=== PATIENT | female | born 1990 | race Caucasian/White ===

== ENCOUNTER 2024-03-29 10:38 | Outpatient (OUT) | payer OTHER, SELFPAY ==
--- NOTE | 2024-03-29 10:46 | XR_ITS ---
The [address] [address] Patient Name: NARENDRA DECKER MRN: [id number] date: 1990 Sex: F Assigned Patient Location: [facility] Current Patient Location: [facility] Accession/Order Number: [id number] Exam Date: 03/29/2024 10:52 Report Date: 03/29/2024 12:15 At the request of: JANETT OVALLE Procedure: XR shoulder RT min 2V EXAM: Right shoulder HISTORY: . Acute Pain Of Right Shoulder M25.511 . COMPARISON: None. TECHNIQUE: 3 views FINDINGS: No acute bony or joint abnormality of the right shoulder is noted. Glenohumeral joint is unremarkable. Right AC joint appears normal. Surrounding soft tissues are unremarkable. XR/XR shoulder RT min 2V IMPRESSION: Negative right shoulder. Electronically authenticated by: RAMILA ARRIAZA Date: 03/29/2024 12:15
== END 2024-03-29 10:39 | disposition home or self-care (01) ==
LOC: RAD 10:42
PROVIDERS: PCP Internal Medicine; Visit Provider Physician Assistant
DX: M25.511 Pain in right shoulder (principal)
CPT/HCPCS: 73030

== ENCOUNTER 2024-07-12 08:33 | Outpatient (OUT) | payer OTHER, SELFPAY ==
[2024-07-12 10:24] LABS: Basophils Absolute Auto 0.1 10^3/uL (0.0-0.1); Eosinophils Absolute Auto 0.1 10^3/uL (0.0-0.7); Eosinophils Percent Auto 1.1 % (0.9-7.0); Hematocrit 35.6 % (36.0-48.0); Hemoglobin 11.6 g/dL (12.0-16.0); Immature Granulocytes Abs Auto 0.01 10^3/uL (0.00-0.03); Immature Granulocytes Pct Auto 0.2 % (0.0-0.5); Lymphocytes Absolute Auto 1.6 10^3/uL (1.2-3.8); Lymphocytes Percent Auto 25.4 % (20.5-60.0); Mean Corpuscular HGB Conc 32.6 g/dL (29.9-35.2); Mean Corpuscular Hemoglobin 29.7 pg (26.7-34.0); Mean Platelet Volume 10.3 fL (9.5-13.5); Monocytes Absolute Auto 0.4 10^3/uL (0.3-0.8); Monocytes Percent Auto 6.6 % (1.7-12.0); Neutrophils Absolute Auto 4.1 10^3/uL (1.4-6.5); Neutrophils Percent Auto 65.7 % (43.0-75.0); Platelet Count 367 10^3/uL (150-450); Red Blood Count 3.91 10^6/uL (4.20-5.40); Red Cell Distribution Width 12.6 % (11.0-15.0); White Blood Count 6.2 10^3/uL (4.0-11.0)
[2024-07-12 11:31] LABS: Percent Iron Saturation 14.3 %
[2024-07-12 11:35] LABS: Alanine Aminotransferase 19 U/L (14-59); Albumin Globulin Ratio 0.6; Albumin Level 2.9 g/dL (3.4-5.0); Alkaline Phosphatase 142 U/L (46-116); Anion Gap 12.1; Aspartate Amino Transferase 11 U/L (15-37); BUN Creatinine Ratio 11.1; Bilirubin Total 0.5 mg/dL (0.2-1.0); Calcium 8.7 mg/dL (8.5-10.1); Carbon Dioxide 26.1 mmol/L (21.0-32.0); Chloride 106 mmol/L (98-107); Estimated GFR (African America >60 (>=60 mL/min/1.73m^2); Estimated GFR (Non-African Ame >60 (>=60 mL/min/1.73m^2); Globulin 4.5 g/dL; Glucose 79 mg/dL (74-106); Potassium 4.2 mmol/L (3.5-5.1); Sodium 140 mmol/L (136-145); Total Protein 7.4 g/dL (6.4-8.2)
[2024-07-13 08:11] LABS: Transferrin 338 mg/dL (192-364)
== END 2024-07-12 08:34 | disposition home or self-care (01) ==
LOC: LAB 08:38
PROVIDERS: PCP Internal Medicine; Visit Provider Physician Assistant
DX: D50.0 Iron deficiency anemia secondary to blood loss (chronic) (principal); I10 Essential (primary) hypertension; B35.1 Tinea unguium
CPT/HCPCS: 36415; 80053; 83540; 83550; 84466; 85025

== ENCOUNTER 2024-12-12 18:59 | Outpatient (REF) | payer OTHER, SELFPAY ==
--- OUTSIDE RECORDS SUMMARY | 2024-12-12 19:03 | XMS_ITS | CCD ---
Author Organization [facility] Care Team Providers Care Orchestrator Name Role Phone CLAUS Burleson, DR PRAJAPATI Admitting Unavailable DR VICTORINA BRAR Attending Unavailable DR FRANK LINARES Primary Care Unavailable DR VICTORINA BRAR Consulting Unavailable Mick Patiño DO Unavailable Frank Linares MD Primary Care Provider NOLVIA OVALLE Attending Unavailable NOLVIA OVALLE Attending Unavailable NOLVIA OVALLE Attending Unavailable Nolvia Shaffer Unavailable Medications Current Medications Medication Drug Class(es) Dates Sig (Normalized) Sig (Original) amoxicillin 50 mg/ml oral suspension (2 sources) Penicillin-class Antibacterial Start: 08-09-2024 End: 08-16-2024 take 10 mL by mouth in the morning amoxicillin (Amoxil) 250 MG/5ML suspension Indications: Acute non-recurrent maxillary sinusitis Take 10 mL (500 mg) by mouth in the morning and 10 mL (500 mg) before bedtime. Do all this for 7 days. 140 mL 08/09/2024 08/16/2024 Active Ethinyl Estradiol / Levonorgestrel (10 sources) Progestin, Estrogen, Progestin-containin g Intrauterine Device Start: 05-31-2024 levonorgestrel-et hinyl estradiol (Jolessa) 0.15-0.03 MG tablet Indications: Abnormal vaginal bleeding Take 1 tablet by mouth Daily 91 tablet 1 05/31/2024 Active Start: 08-06-2023 End: 05-31-2024 levonorgestrel-ethinyl estra diol (Jolessa) 0.15-0.03 MG tablet Indications: Abnormal vaginal bleeding Take 1 tablet by mouth in the morning. 91 tablet 3 08/06/2023 05/31/2024 Discontinued (Reorder) Start: 08-06-2023 levonorgestrel -ethinyl estradiol (Jolessa) 0.15-0.03 MG tablet Indications: Abnormal vaginal bleeding Take 1 tablet by mouth in the morning. 91 tablet 3 08/06/2023 Active 24 hr metoprolol succinate 50 mg extended release oral tablet (10 sources) beta-Adrenergic Merle Start: 12-11-2024 take 1 tablet by mouth once daily metoprolol succinate XL (Toprol-XL) 50 MG 24 hr tablet Indications: Essential hypertension (CMS/HCC) TAKE 1 TABLET BY MOUTH DAILY, DO NOT CRUSH OR CHEW 100 tablet 3 12/11/2024 Active Start: 05-31-2024 take 1 tablet by franko th once daily metoprolol succinate XL (Toprol-XL) 50 MG 24 hr tablet Indications: Essential hypertension (CMS/HCC) Take 1 tablet (50 mg) by mouth Daily Do not crush or chew. 90 tablet 1 05/31/2024 Active Start: 11-02-2023 End: 05-31-2024 take 1 tablet by mouth once daily metoprolol succinate XL (Toprol-XL) 25 MG 24 hr tablet Indications: Essential (primary) hypertension (CMS/HCC) TAKE 1 TABLET BY MOUTH EVERY DAY FOR 100 DAYS 100 tablet 3 11/02/2023 05/31/2024 Discontinued (Reorder) terbinafine hydrochloride 10 mg/ml topical cream (9 sources) Allylamine Antifungal Start: 05-31-2024 End: 08-29-2024 take 1 tablet by mouth once daily terbinafine (LamISIL) 250 MG tablet Indications: Onychomycosis of toenail Take 1 tablet (250 mg) by mouth Daily 30 tablet 2 05/31/2024 08/29/2024 Active Start: 05-31-2024 End: 08-09-2024 terbinafine (LamISIL AT) 1 % cream Indications: Tinea pedis of both feet Apply topically 2 (two) times a day 42 g 1 05/31/2024 08/09/2024 Discontinued (Other) Completed/Discontinued Medications Medication Drug Class(es) Dates Sig (Normalized) Sig (Original) baclofen 10 mg oral tablet (3 sources) gamma-Aminobutyri c Acid-ergic Agonist Start: 01-26-2024 End: 05-31-2024 take 1 tablet by mouth at bedtime baclofen (Lioresal) 10 MG tablet Indications: Acute pain of right shoulder Take 1 tablet (10 mg) by mouth at bedtime for 7 days 7 tablet 01/26/2024 05/31/2024 Discontinued (Other) Problems Active Problems Problem Classification Problem Date Documented Date Episodic/Chronic Anxiety disorders (16 sources) Anxiety state; Translations: [Generalized anxiety disorder] Onset: 01-26-2024 01-26-2024 Chronic Deficiency and other anemia (2 sources) Iron deficiency anemia due to blood loss; Translations: [Iron deficiency anemia secondary to blood loss (chronic)] 05-31-2024 Chronic Essential hypertension (10 sources) Essential hypertension; Translations: [Essential (primary) hypertension] Onset: 01-26-2024 01-26-2024 Chronic Immunizations and screening for infectious disease (1 source) Encounter for screening for human papillomavirus (HPV); Translations: [ENC SCREENING HUMAN PAPILLOMAVIRUS] Onset: 08-17-2022 Episodic Menstrual disorders (10 sources) Menorrhagia; Translations: [Excessive and frequent menstruation with regular cycle] Onset: 01-26-2024 01-26-2024 Chronic Mycoses (4 sources) Tinea pedis; Translations: [Tinea pedis] 05-31-2024 Episodic Other female genital disorders (8 sources) Abnormal uterine bleeding; Translations: [Other specified abnormal uterine and vaginal bleeding] Onset: 01-26-2024 01-26-2024 Chronic Other female genital disorders (2 sources) Abnormal vaginal bleeding; Translations: [Abnormal uterine and vaginal bleeding, unspecified] 05-31-2024 Chronic Other nervous system disorders (8 sources) Difficulty walking; Translations: [Difficulty in walking, not elsewhere classified] Onset: 01-26-2024 01-26-2024 Chronic Other nervous system disorders (8 sources) Mononeuropathy of lower limb; Translations: [Unspecified mononeuropathy of right lower limb] Onset: 01-26-2024 01-26-2024 Chronic Other nutritional; endocrine; and metabolic disorders (10 sources) Morbid obesity; Translations: [Morbid (severe) obesity due to excess calories] Onset: 01-26-2024 01-26-2024 Chronic Other screening for suspected conditions (not mental disorders or infectious disease) (8 sources) Endometrium thickened; Translations: [Abnormal findings on diagnostic imaging of other specified body structures] Onset: 01-26-2024 01-26-2024 Chronic Other screening for suspected conditions (not mental disorders or infectious disease) (4 sources) Encounter for screening for malignant neoplasm of cervix; Translations: [ENC SCREENING MALIG NEOPLASM CERV] Onset: 08-12-2022 Episodic Other upper respiratory infections (2 sources) Acute maxillary sinusitis; Translations: [Acute maxillary sinusitis, unspecified] 08-09-2024 Episodic Past or Other Problems Problem Classification Problem Date Documented Date Episodic/Chronic Biliary tract disease (8 sources) Cholelithiasis AND cholecystitis with obstruction; Translations: [Calculus of gallbladder with other cholecystitis with obstruction] Onset: 01-26-2024 01-26-2024 Episodic Deficiency and other anemia (8 sources) Iron deficiency anemia; Translations: [Iron deficiency anemia, unspecified] Onset: 01-26-2024 01-26-2024 Episodic Results Test Name Value Interpretation Reference Range Facility ALL CBC WITH AUTO DIFFon BASOPHILS ABSOLUTE AUTO 0.1 [facility] Basophils/100 WBC (Bld) 1 % 0.2 - 2.0 % [facility] Eosinophils/100 WBC (Bld) 1.1 % 0.9 - 7.0 % [facility] Erythrocyte distribution width (RBC) [Ratio] 12.6 % 11.0 - 15.0 % [facility] Hematocrit (Bld) [Volume fraction] 35.6 % Low 36.0 - 48.0 % [facility] Hemoglobin (Bld) [Mass/Vol] 11.6 g/dL Low 12.0 - 16.0 g/dL [facility] IMMATURE GRANULOCYTES ABS AUTO 0.01 [facility] Immature granulocytes/100 WBC (Bld) 0.2 % 0.0 - 0.5 % [facility] Interpretation and review of laboratory results Abnormal [facility] LYMPHOCYTES ABSOLUTE AUTO 1.6 [facility] Lymphocytes/100 WBC (Bld) 25.4 % 20.5 - 60.0 % [facility] MCH (RBC) [Entitic mass] 29.7 pg 26.7 - 34.0 pg [facility] MCHC (RBC) [Mass/Vol] 32.6 g/dL 29.9 - 35.2 g/dL [facility] MCV (RBC) [Entitic vol] 91 fL 81.0 - 99.0 fL [facility] MONOCYTES ABSOLUTE AUTO 0.4 [facility] Monocytes/100 WBC (Bld) 6.6 % 1.7 - 12.0 % [facility] NEUTROPHILS ABSOLUTE AUTO 4.1 [facility] Neutrophils/100 WBC (Bld) 65.7 % 43.0 - 75.0 % [facility] Platelet mean volume (Bld) [Entitic vol] 10.3 fL 9.5 - 13.5 fL [facility] TBH EO # 0.1 [facility] PLT 367 [facility] RBC 3.91 Low [facility] WBC 6.2 [facility] PAP ACOG PANEL 2: 30 to 65on 08-17-2022 . . Normal [facility] Comment on above: Result Comment: Perf ormed at: WB Performed By: #### [id number] #### [facility] [address] [address] [address] Annamaria Cheema Age Gdln ACOG Testing Normal [facility] Comment on above: Performed By: #### [id number] #### [facility] [address] [address] [address] Annamaria Cheema DIAGNOSIS: Comment Normal [facility] Comment on above: Result Comment: NEGA TIVE FOR INTRAEPITHELIAL LESION OR MALIGNANCY. Performed at: WB Performed By: #### [id number] #### [facility] [address] [address] [address] Annamaria Cheema HPV Aptima Negative Normal Negative [facility] Comment on above: Result Comment: This nucleic acid amplification test detects fourteen high-risk HPV types (16,18,31,33,35,39,45,51,52,56,58,59,66,68) without differentiation. Performed at: =G Performed By: #### [id number] #### [facility] [address] [address] [address] Annamaria Cheema HPV Genotype Reflex Comment Normal [facility] Comment on above: Result Comment: Crit eria not met, HPV Genotype not performed. Performed at: WB Performed By: #### [id number] #### [facility] [address] [place] [address] Dr. Annamaria Cheema Methodology: Comment Normal [facility] Comment on above: Result Comment: This liquid based ThinPrep(R) pap test was screened with the use of an image guided system. Performed at: WB Performed By: #### [id number] #### [facility] [address] [place] [address] Dr. Annamaria Cheema Note: Comment Normal [facility] Comment on above: Result Comment: The Pap smear is a screening test designed to aid in the detection of premalignant and malignant conditions of the uterine cervix. It is not a diagnostic procedure and should not be used as the sole means of detecting cervical cancer. Both false-positive and false-negative reports do occur. . Performed at: WB Performed By: #### [id number] #### [facility] [address] [place] [address] Dr. Annamaria Cheema Performed by: Comment Normal [facility] Comment on above: Result Comment: Chaitanya Thurston, Fitting Room Supervisor (ASCP) Performed at: WB Performed By: #### [id number] #### [facility] [address] [place] [address] Dr. Annamaria Cheema Specimen adequacy: Comment Normal [facility] Comment on above: Result Comment: Sati sfactory for evaluation. Endocervical and/or squamous metaplastic cells (endocervical component) are present. Performed at: WB Performed By: #### [id number] #### [facility] [address] [place] [address] Dr. Annamaria Cheema MAGR Postoperative Recordon 11-27-2020 MAGR Postoperative Record MAGR Phase II Record Summary Primary Physician: Mick Patiño DO Finalized Date/Time: 11/27/20 13:22:20 Pt. Name: LORI DECKER/Sex: 1990 FEMALE Med Rec #: [id number] Physician: Mick Patiño DO Financial #: [id number] Pt. Type: D Room/Bed: / Admit/Disch: 11/15/20 09:41:25 - 11/15/20 17:20:00 Institution: Phase II Case Times MAGR Pre-Care Text: Patient is free from s/s of injury. Patient remains free from compromised physical state related to surgery or anesthesia. Patient comfort maintained. Patient/family verbalize understanding of discharge instructions. Entry 1 In PACU II 11/15/20 16:01:00 Discharge from PACU 11/15/20 17:00:00 II Last Modified By: Ruth Awad RN 11/27/20 13:22:08 Post-Care Text: The patient remains free from s/s of injury. Patient's vital signs stable, circulation maintained, return to preop mental and physical status, opsite/dressing intact, minimal or absent nausea and vomiting, tolerates po intake. Patient verbalizes adequate pain control. Patient/family express understanding of discharge instructions. General Comments: care per 2 [facility] Finalized By: Ruth Awad RN Document Signatures Signed By: Ruth Awad RN 11/27/20 13:22 [facility] Coding Summaryon 11-20-2020 Coding Summary HTMLBase 64 BqwoeehpVEv8eSp+PGhlY WQ+QU4AZAOhV32eqWQerV 1JM9rUKS0OPUDAXLWCOQ1 SQD4qyTP1YKpgC6YkxxQw GssdrJYjBU65EKl3GUO0h OokVAxpvP5taOQuQ2x1Kq WgGS44yR92AKocXDPtHoQ 3LjZpbjsgbWFy V9neBlToyAWhYlr+PHRhY mxlIHdpZHRoPScxMDAlJy RrwGmfVZ2lGi1fWJTaWEB vbGxhcHNlOiBj m8rrZOJsVBdlON2zdJnpE 5LosRY6KRYht0o2Sk05jL I+CRYkYBH2sCjkXMtal77 7HpXpn6fkMBL1 bGFeZUqhGCQ8M59dl2N3A NXuCXIoHWN6pWR2wI0pvN xlygeqD2RebCVaIhZ6VIK 3lUTiaH9kbNrg epuzpZ8gGxl+O73MTN5XF BOOYX1ETcs0A8QeIuujmF I+FF70XPRvZW48eYMysKA nd2uxeTm2HtKl YMTpQDC2iTalQPplp9IuV HBzC30frYSqk6M4ATOrgM aiuPZrFrFvwRY7vX9yQXz jzajcy7gzhlro Ewuqu9ucyj13aV64W93sI KddQNIdQGS5EQLmNDBquT jvqw5ywL7aMa1+PMbrb3x ct9umiMf9KzUs FOUmmxUrxHxqDCN9y8RoM f93K6RjyRvkg2YeSqp7jw 14tCRpa8I6vCQ7MZfsVBX djI6mKVvvOtB7 BIVoBaCjkW35bFVkKGwyJ n3feWczbNgsPI9jQPBivg rfVECnpR0yNMPmrNKkcDv aHK6rVZVvifhu n132YhGfHSN1UCIkaDUkY 1PjrL1mVdIbESCnYXPwZ0 KepGPrUZrnI992YEkgSwI 1LODmgcKtV4Ae YHVdiSjeEhM9s5A4Ul9Xu 8JvbzqeNMH8JJdgOIP4Hj V8LmXvArG1J9FxLvu5GXF eiRspHI3uE4Wg GNNpjxrvbmuzbOF5LIXyR SCilT50kJRoTIavVf3ch1 O0p743PEAlEJSsbU91Fp6 udDogMTBwdCBU wC4wcirij2yquxurWbNqV BClGZi9MXx8XUUraHfyTg KvZGL4OwN0VTQ1tVTenO6 woKpyylbmfZ7a Oyc+Z27sbB1cGHL5TMV5u jkdQKZzriDvXK05VC10Y9 RyPjwvdGFibGU+PGRpdiB piHddSZ3bVuNa m6kvs9YqMQsaS7PxBXCkH SjlSzf9STLdYWJ1qVZ7yE 3wJKUjVFdwo2X7pYK9E7G bjaSiia4xm4st IPIxVCyqD89nxUCqr5M6L XPrjVZ4BVTlxMvoQhAatB 93Oyc+GVLgxQwmx6EqAjm tq7wvy1ugtBz6 UsNfLKMuakFdvOwfVEW1i 8EsBt82W36fQWuqOXGsIH CyUVVwOCDsjUgpzf0ywJ8 wIi8+PGNvbCB3 iFL4sY3rKROoYrI1OVnoN 438YpIqoIJvJfiim1ews6 iruBw9KqFkVNWkvcLykAg xHCO7f0IrPs19 N59hAFrmNQRgDULpTNHdK XDosWzvhb0xuJ4vVq7+PC 2an9pqlc92eV22fNJ+PHR kAPY6yTaiVJuh JFIxgL0mSLryWuF4PIEjJ aOnrY86hQEzHVxiVy7ynU eayUueSJ0hRITvvvgen14 6RhEio8vdXONc aBKdBJsxTMS4K11lw2P3S UMoWIBjANY1fIU6hS2ubD lnbjogbGVmdDsgdmVydGl jCHhcKDlbX342 IHRvcDsnPlBhdGllbnQgT tKyLZe9Y2YaDjp9LSEohV xzTX9geLFhTUwxUe2bmZo xvCebCR3lMASk ztger538QeHqc0cnMHCgn EUvZLwqUGX9H72fq6O9UW VvWSSaEBH9pSB3oW1uuQb nbjogbGVmdDsg rwBybMrsVJhlNGakJ518N HRvcDsnPkJpcnRoIERhdG Y5IC77BZ92eVXyc6K8yYU 9L9RkNJZoelbi jnbocHJ3MGIhORDmoF65D f4ahPypOo7mZWPuMCE8HA WbbMPiQ9CdxW1dSmMaTMA hLRDuN6OtvCUz SKppV947HJcwBhF9CPKlk cLuT4HaWQHvcCwnNvI5y5 I7Hz9NV4I9NG74BM35xGD cb6S2eZT2M5Dr YXPajjczkzdryQU5RSNgA QNqyB77Di7vaZkjLm5yWO OlEAU7SEGwjMIbH7HbrO5 yOiAjMDAwMDAw S9DwtVJsNIbuQ089WLyrM bY7OIRjzrSyG3KhEVGycL mkNiT8n7D5Nb2ILAl9DB9 7NH45uCPne7X5 dNJ7G1FaKAQzfnaxbhewj GH5QNAhVGQslI88Vm5aoF vhAy7hLHNvRIB2HLLcsDE oY3OqwP2fGrOc HBAfQCYqF9WwlDGxANmsU 788LSoeCxT5USZpkwXdP1 LkBFZogOoaXuD3i5D5Qp5 ZVVIwEY21SJX8 yAK3PU31UP65Z4YzHdwbt GFibGU+PHRhYmxlIHdpZH RoPScxMDAlJyBzdHlsZT0 mNi3pFGYjDNPl nAkkeEIfYqLrq5ymJCWyA HzlPU0dxPenG7MduIE0CD Jba5e0Tl51B99nM7VlwQA +INKxcDP6fSE4 sZ5sBnTyRuJ7RCesY149E mOppHEhFtrzb2mdt6bwhD o7KtP4NPWiexRuuYmeSAK 5u5QbSe17G06o IHdpZHRoPSIxNSUiIHZhb Dfqic3usK3jOe7+PGNvbC S3eBV5iZ9nQqRkQgB2HNf eC328LdEjgOFw Liudh5utv0kzwWj8MaBxU NEruxLixBygLHA6g0MjXb 09Z1QxvOsrm7UoUoz5zl7 2bXVky3S8fCC7 C0RpZLFciqbdiYOhxLdrO E7fHQYubagwQVDkiH3yQC SdK8l7JdHjRkQ0CDcmU7T rioU4LXVzpXCg XYijKOS9P37hl8I7DBSaP NNjOTQ5nVN5yL5rdYnski ogbGVmdDsgdmVydGljYWw zVJkxC544QGAd fHhfEYEliE9rZPUpiEKxt PohOQ0vKTSmklpiReKSZM kUGUTBQuqeBYuWUE6RXKZ NRUdBTjwvdGQ+ CIPaXHX6aNhjYVmwYWQim J0eDPQnX3d0VjMmWxH4CF lgO1QzUOQxkczbIb89tA0 nOrZyBaW4JGcx M1EotlR4JTPwiHOcPNjuY XE6V08ni7C9UONuNEVeNJ T2bJL3dY6ruZtlmegjwTZ mdDsgdmVydGlj KVslHRlnI905CLPtsBlyY gU2PzK6WqM8CIM0T4KxIq p6KGMthTulTS8trUGjMXl eTm3itPoxbWvy LA3gKXRhwfupMTQhyV2uX JIbvDFnvIkuHN6aUEJwez uum491OpDdJBK6PVUoqKJ qQ2ZspM7gCiQa JMGzGEWtF0BkvRBpOChhM 491CWccQiP8XZLpmfHgV5 BjFGMxfDwmOxG7v3F1Kf3 zMCBZZWFyczwv dGQ+TEHuNHE8eEwfHZdvF ECnyS4aHDOnM6h1DlQrRh F0UPvuR5EfGXHnbcayVp6 9uJ2vLjMjBuK8 IAbzY4WtivR8NMSucZRdO PayBZZ1T37am4O9NKNtVH VkXKW7pZN0wV9ccGjiivg gbGVmdDsgdmVy jRvoSJqpILnkQ997SKJzo DsnPkZFTUFMRTwvdGQ+PH EhFZG5rFulPCioMCYsiM4 vCHMkB7n8DoGf FoW2MDlpS2UbXLJllsspA p35pY4uNeWtPuV6JLxnB4 ZjizA7ZSRycAJuAWtfNVD 5I08eq1L8MAIb THRlUFG8aIQ7kX4uzVfhr jogbGVmdDsgdmVydGljYW sbSDhcC341FFDjtKxfYxY heSBTdXJnZXJ5 UY15ZF26S2PgYrqxaMOyc +PHRhYmxlIHdpZHRoPS rkWKLbJpSebVmrRE4rIv8 yZGVyLWNvbGxh bSGbWiTso7gmDEKsQTwgD Y4ioZbjE6XqjDQ1KVMrm5 g0Ik93O42zD1RttEY+PGN uwFX9gJE6aP4c UmNdBkV2PQotW225YqXya ISgZueva4wam8vzjSl2Ys LmFVDqweNukNzwWOF5a2E cQj62R37eHQvv ZHRoPSIyMCUiIHZhbGlnb h7ilS7pUo9+EMQldRU1nP Q6eG9kKfQdFrR8SSnaL38 9InRvcCIvPjwv L62rZ5QciIS+KAYeJyx7C IYpaMyrZC1cjMRpGKhrWr 0jWMS7XzLzHwAlQKyoQ7R hZGRpbmctcmln mHG3ZIZsDVTkdC08Di0ml BvsJe2yXVAtELZ7UPCdcJ ErA3JzfV2tLmPuMSIiPJD vI2QyfEGkBLxv C949XVxtJtI9FNMiykYnB 5NoKTYdjWsxPzU0t3D1Bu 6UvOehkPDsDC0rXtXhPCy 7Z7AhJmk6FXIo jYxtLH7tcLPdETejUl2wq UfqdZlvAI7kLRJlrxdvc9 30VxQow0zmGXWdkKXdFVh pWXR3D51pu6A8 VRZuAYWjKMC5wZT6kG7eb GlnbjogbGVmdDsgdmVydG urXMjzOFhoR960IYTjfBt oXfMCBdj6G4Uf Dsa5PFJbwJpoRW5egOJiA GvuWe8dvBbvcNplAJ8xOS Basytdb162VgErf0lsEFP wcHQgVGltZXM7 C65ff8D8PAKkEAImQDT8e YF1hC3xiVwmvvnosMIqmI mamiOozYuoMZjzUFfdN88 6ZXBawViqUl6N Edn4A5LsIed9TWQyqWluH K4qpQWtTUygHy7atYxioZ goZW1xGPDbpjjan640QnR ot9pcDJUyfHXt VHplKYZ0L88cg1S4AAThD GJdNIV9qFZ5uP8zyLwvau ogbGVmdDsgdmVydGljYWw fQSjsS022VSLk cDsnPlBheWVyOjwvdGQ+P K79xi86N0ZaOixvNbo7FU YaLMA0hGE2tW5iDKNtREd kx1R7aPO5B1Fn cmR (more content not included)... [facility] Consent Formson 11-18-2020 Consent Forms [id number]#1 [facility] Instructions [id number]#1 [facility] Outside Recordson 11-18-2020 Outside Records [id number]#1 [facility] Tele[facility]pson Telemetry Strips [id number] [facility] 11-15-2020 Anesthesia Note Patient: LORI DECKER Age: 29 years Sex: FEMALE : 1990 Associated Diagnoses: None Author: Mick Owens MD Postoperative Information Post Operative Note: Post Anesthesia Care Unit. Assessment Anesthetic outcome No anesthetic complications noted. Awake Pain controlled VSS Nausea controlled Respiratory non-labored. [Electronically Signed on: 11/16/2020 19:39 EDT] Mick Owens MD [Verified on: 11/16/2020 19:39 EDT] Mick Owens MD [facility] Anesthesia Note Patient: LORI DECKER Age: 29 years Sex: FEMALE : 1990 Associated Diagnoses: None Author: Mick Owens MD Preoperative Information Anesthesia history: Patient history: No history of anesthesia complications. Family history: No family history of anesthesia complications. Review of Systems Respiratory: Negative, No shortness of breath, No cough. Cardiovascular: Negative, No chest pain. Gastrointestinal: No heartburn. All other systems are negative Health Status Allergies: Allergic Reactions (All) No known allergies Current medications: Home Medications (2) Active metoprolol succinate 25 mg oral tablet, extended release 25 mg = 1 tab(s), PO, Daily oxyCODONE 5 mg oral capsule 5 mg = 1 cap(s), PRN, PO, q6hr Problem list (past medical history): All Problems Ankle fracture, left / SNOMED CT 20772419 / Confirmed Hypertension / SNOMED CT 0457520088 / Confirmed obesity Histories Family History: Myocardial infarction Mother Procedure history: Cholecystectomy (64950931) in 2013 at 22 Years. D&C - Dilatation and curettage (1920846749). Social History Electronic Cigarette/Vaping Assessment Electronic Cigarette Use: Never. Alcohol Assessment Use: Never. Tobacco Assessment Never (less than 100 in lifetime) Tobacco Use:. Substance Abuse Assessment Substance use: Never. . Social & Psychosocial Habits Alcohol 11/01/2020 Alcohol Use: Never Substance Abuse 11/01/2020 Substance use: Never Tobacco 11/01/2020 Smoking tobacco use: Never (less than 100 in l Electronic Cigarette/Vaping 11/01/2020 Electronic Cigarette Use: Never . Physical Examination VS/Measurements Vital Signs (last 24 hrs) Last Charted Heart Rate Monitored 96 bpm (NOV 15 10:19) Resp Rate 18 br/min (NOV 15:) SBP 135 mmHg (NOV 15:) DBP 88 mmHg (NOV 15:) Height 170 cm (NOV 15:) Airway: Mallampati classification: II (soft palate, fauces, uvula visible). Mouth: Adequate opening, Teeth ( Within normal limits ). Neck: Full range of motion. Respiratory: Lungs are clear to auscultation. Cardiovascular: Normal rate, Regular rhythm, No murmur. Review / Management Laboratory Results Plan [place] [employer]#( A) physical status classification: Class II. Anesthetic Preoperative Plan Anesthesia: General. , LMA with SNB and Pop Sciatic blk for post op pain control. Anesthetic plan, risks, benefits, and alternatives discussed with the patient and/or family. Risks discussed. Patient verbalized understanding. Consent was signed by the patient. [Electronically Signed on: 11/15/2020 14:39 EDT] Mick Owens MD [Verified on: 11/15/2020 14:39 EDT] Mick Owens MD [facility] Inpatient Patient Summaryon 11-15-2020 Inpatient Patient Summary [address] [address] Patient Discharge Instructions Name: LORI DECKER : 1990 MRN: [id number] Patient Address: [address] [place] [id number] Primary Care Provider: Name: FRANK LINARES After you are discharged if you find you have any questions, please, call [phone] ext [phone] to speak to a nurse. Discharge Diagnosis: Fracture dislocation of left ankle Prescription Information: If you have been given a prescription for narcotics, seek immediate medical attention if you have any difficulty breathing or any sudden status changes such as confusion and sleepiness. If you or anyone you know is experiencing suicidal thoughts, mental health, alcohol and/or drug addiction problems; contact the [facility] 15/02 Crisis Hotline -Text 4HOPE to 525150. If you received any narcotics, sedation, or any other medication that causes drowsiness for the next 24 hours, unless otherwise directed: ? Do not drive a car. ? Do not operate machinery such as power tools, lawn mowers, drills, sewing machines, or stoves ? Avoid alcoholic beverages and drugs for allergies, nerves, or sleep ? Do not make important personal or business decisions or sign any legal documents [facility] would like to thank you for allowing us to assist you with your healthcare needs. The following includes patient education materials and information regarding your injury/illness. LORI DECKER has been given the following list of follow-up instructions, prescriptions, and patient education materials: Follow-up Instructions With: Address: When: DANTE Napoles [facility], [facility] [address] [place] [address] Business (1) 11/20/2020 2:00 PM With: Address: When: DANTE Napoles [facility], [facility] [address] [place] [address] Business (1) In 5 days 11/20/2020 With: Address: When: FRANK GILA [facility], [address] [place] [address] [address] [place], [place] [id number] Business (1) Medications During the course of your visit, your medication list was updated with the most current information. The details of those changes are reflected below: Medications to Continue That Have Not Changed Other Medications metoprolol (metoprolol succinate 25 mg oral tablet, extended release) 1 tab(s) Oral every day. oxyCODONE (oxyCODONE 5 mg oral capsule) 1 cap(s) Oral Every 6 hours as needed for pain. It is important to always keep an active list of medications available so that you can share with other providers and manage your medications appropriately. As an additional courtesy, we are also providing you with your final active medications list that you can keep with you. metoprolol (metoprolol succinate 25 mg oral tablet, extended release) 1 tab(s) Oral every day. oxyCODONE (oxyCODONE 5 mg oral capsule) 1 cap(s) Oral Every 6 hours as needed for pain., RX given to per Dr Patiño on 11/03/2020 Take only the medications listed above. Contact your doctor prior to taking any medications not on this list. Diet & Activity Patient Activity Level: Patient Diet: Regular Patient Activity Restrictions: Comment: Patient education materials, if any, will display below Ankle Fracture The ankle joint is made up of the lower (distal) sections of your lower leg bones (tibia and fibula) along with a bone in your foot (talus). An ankle fracture is a break in one, two, or all three of these sections of bone. There are two general types of ankle fractures: ? Stable fracture. This happens when one of your bones is broken, but the bones of your ankle joint stay in their normal positions. ? Unstable fracture. This type can include more than one broken bone. It can also happen if your outer bone is broken and the tough bands of tissue that connect bones (ligaments) are also injured at your inner ankle. This type of fracture allows the talus to move out of its normal position. What are the causes? This condition may be caused by: ? A hard, direct hit (blow) to the ankle. ? Quickly and severely twisting your ankle, often while your foot is planted and the rest of your body moving. ? Trauma, such as a car accident or falling from a height. What increases the risk? This condition is more likely to occur in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 and maintained. A smaller fracture fragment at the major fracture site is seen displaced medially. There are 2 stabilizing screws at the level of the distal tibia laterally in the area of above noted fracture. There are 2 stabilizing screws in the region of the medial malleolus of the distal tibia in the area of the above-noted fracture. Ankle joint has a more normalized appearance on the final images. Total fluoroscopy time for the procedure was 119 seconds. IMPRESSION: Left ankle study demonstrates grossly unremarkable postoperative changes on the final images as described. Small fibular fracture fragment noted medially at the unremarkable appearing major fracture site as described. Fluoroscopy was utilized by the surgeon during this procedure. Final Dictated by: Maulik Calixto MD Dictated DT/TM: 11/15/20 3:44 Signed (Electronic Signature): Maulik Calixto MD 11/15/20 4:29 pm Technologist: Praveen MCDUFFIE [facility] XR Fluoroscopy Up to 1 Houro n 11-15-2020 XR Fluoroscopy Up to 1 Hour EXAM: XR Ankle 2 Views Left, XR Fluoroscopy Up to 1 Hour HISTORY: ORIF LEFT ANKLE OR#5. COMPARISON: None. TECHNIQUE: A total of 9 AP and lateral spot film views of the left ankle were obtained with additional oblique views obtained and included in this study. FINDINGS: Initial images demonstrate comminuted fracture of the distal fibular shaft as well as comminuted fracture of the medial malleolus region of the distal tibia as well as fracture of the lateral aspect of the distal tibia at the distal metaphyseal/epiphysea l level. There is widening of the ankle joint superomedially. No evidence of abbe dislocation. Subsequent images demonstrate placement of stabilizing plate and screws at the distal fibular level to include area of fracture. Major fracture fragments appear grossly well aligned and maintained. A smaller fracture fragment at the major fracture site is seen displaced medially. There are 2 stabilizing screws at the level of the distal tibia laterally in the area of above noted fracture. There are 2 stabilizing screws in the region of the medial malleolus of the distal tibia in the area of the above-noted fracture. Ankle joint has a more normalized appearance on the final images. Total fluoroscopy time for the procedure was 119 seconds. IMPRESSION: Left ankle study demonstrates grossly unremarkable postoperative changes on the final images as described. Small fibular fracture fragment noted medially at the unremarkable appearing major fracture site as described. Fluoroscopy was utilized by the surgeon during this procedure. Final Dictated by: Maulik Calixto MD Dictated DT/TM: 11/15/20 3:44 Signed (Electronic Signature): Maulik Calixto MD 11/15/20 4:29 pm Technologist: Praveen MCDUFFIE [facility] Coding Summaryon 11-07-2020 Coding Summary HTMLBase 64 TowelyoqLDa0wCc+PGhlY WQ+ZP3COVTgM65naXXxzB 5UJ1zWIN6RKRSJETGVDJ6 UZQ9dcFY3MEvkV8KkevFt SefinCQpJL98PAs1QFP5x IdbBUuhuL1mvEEpA8d3Eh WtXG03nM38HBmpPSCdDuG 3LjZpbjsgbWFy Y0urCzUvbWJkXot+PHRhY mxlIHdpZHRoPScxMDAlJy BigRozDP7bXe0oOIGpZUK vbGxhcHNlOiBj o2fwBGEdMIxhCA6gtTuwC 2EfiZG7FSWag5o2Us12gI I+SYPxBTH7yShxGXrqn18 3QyAev2fuFYT2 lNWsOKbeICF3Z88jg2J3X OEaJDScRXJ4dTY6fC7lpX gsxobxL1PxdWKlWyV1MKC 1iLZiiX6rkLnh wfrswE1jUzh+E91SKU7ST YGIVE6MNnq6X7XvDfwtpS I+VU95VRYoSA42cOFppEQ cz9dxjGl7LeSa SJCvRCE9kEduDKgny9CeC IUcR13kyXSuy0F3IWKtuC nroZIuOdHfhPI2fB7sNNz qpyzwu2reemwg Mfftk0jorm55qS66R15mC ScoGUSiEHA7JOOcFGTbuI fcjf9yxC6rAh9+NCmua5n ju8hnvHa4NkCv QSVedaWmhRqcTXD8q1JeZ b35J9BfnWdyn3WrEqf2al 11mGFll3U9iFQ4ALycUMS vfS6hJTyaRkT4 WTVrRfUofZ79jIPaIHfvF w0hyNnnqYwpBV5nRBFrnm ohYNWvoQ4oOHQvvVNrkVq cFO1wMFVdcpmf b040VtVvDXZ6LSPhaKEdV 7PmfZ2aNgIpQVIwMAVsX1 AbzKOnAXibZ867OWqwSwV 2URRsjoYxX2Fz KSFniCpmFhQ8z2D9Og9Ws 4PslngiYQL0BDurQAH7Jg Y2KiXqHwG1P0DlEer4KAK mfXnmTI0dR2Yp PVXvrmlxqsfekIC5XXMtK PGxvU19iNKoCRrvPy9fe5 R9g922JDSwOZDwfL16Ph6 udDogMTBwdCBU bE1grawma1drhearDeQzK WRoIXo6KQu3PIQwxRczYp QnFIR4SoC3ZCD1xBRkoT9 dxRccncqolY3g Oyc+Y66ciC0iQJH2YKY4i msnNIVlspMxGN18OJ68F5 RyPjwvdGFibGU+PGRpdiB dbEovBN9lPwQm y1cks5XmQIulW3SlYVSqS TukNdj6WHYmELW6oJG6aE 9uCOIcALaho7N6mJR9W9Z tugPamp4em6ia ATXmRMsjN70ysXFje3U8X GFpiTN8VYWkmBviDmTodJ 93Oyc+HESuhBbln3FcDzi ac3vun2zneKl2 ByOyMZWrudMbmFyhWXG1x 1XdOj04N49sEXduNAPcVQ RcPWLjKCHxyIahqd2svC1 wIi8+PGNvbCB3 mDY8tE2tYYZgSrA3RHnkE 258NqTviHSeLtsrl1zyj6 fluXn5EpDtNCEqsoDcbId xDZL6b2TiBj89 S64yMJmfIUZmDQCwIFFoD IBhmJuobw0lmR0fKk4+PC 0na7uhpj99zS35dZW+PHR iGJV1wRvrHHnk EKZzyL8qZQhvUxW6YURkP oZptW36nLIiFNhnDh6oaP zbeAnvMH0lHTXbokjef21 3XnQvo8ksQWXg tLNuBQmtXDM4J10uj9P0E HOwRQNgBWS7fQP3gK1nsI lnbjogbGVmdDsgdmVydGl zZQcmFEajI297 IHRvcDsnPlBhdGllbnQgT wIjZTw5X9QiUxw4XIEspX xfIV2ziBKoKOqmHq3yyTj eoDhwMD8pXLUf mlrpf806AbKnf5irUTHba IBjIEdqFCS7T53rk3D9LI KmIIReQBC9kZE3bM7ykEb nbjogbGVmdDsg mbMdzIwhTAfwSEueL406S HRvcDsnPkJpcnRoIERhdG I0UM67OX67vYJuu8B1cLT 8Q9YeASKfjdzf iaxkmRP4WWImLXChhR44F a5cbSvzMu9eJJMfVIM0TU DngMFbZ7UswW8rCtJkGOD rNOHsG7MyqFUp XZldE702NTtaVzI1XCWbg rRdK9OgNEZsnGlkSyC7x0 A2Js1AU3T4TI17IY01zEP cz6A8jNJ1G8Bp SQSfvtpaeefjiXQ9NTAkZ IHgcA86Wy0mkEyyUy6cHY EaJBV4THNnpSMgY7KiwP4 yOiAjMDAwMDAw Y4EcwRImIJahF135LWrnO rY5MGGmegZuH4DjEDCsyT bgErX6v0H1Tv0IXLp4VU0 3RF80lUZky6J7 qNU0Q4EyETMtcsvpcnpaz CN1VFUrIDNurK65Fh5ylS phOh2xQLAqEWR4AVBsqUL lI5OpmH8iNxWj WODbKQOfX4GazUPwCAnjX 920KKypKfM0GQGvnrTpF8 YdYFYbfElvMgC9z0U4Hp0 SLWZuYN65EWF7 aBO2TW58EU99Y4SmRsjvy GFibGU+PHRhYmxlIHdpZH RoPScxMDAlJyBzdHlsZT0 iQh8hTYFjIJRy mOqkiIPxInVaf7pgMWBrT VqaDY1tvVmuJ5YxjVN5MI Czk7z8Wq58U95zJ9WfyWH +JWLnvHE2iMQ3 uT6hBkZqEdW5KIspC063V jVxpNQbZsemh3myx8qsdW x6CfO7TVIgkcEfoVojMTT 0k8YvGe78Y58l IHdpZHRoPSIxNSUiIHZhb Xxbfp8hzA5dNq6+PGNvbC H7nVW6vM5lXsZmEkP8KMu vW685QdKztFGi Vkerm4ijq3mgbWk3JdEmR UZhhiOhwQswZOD3o5WbHk 26P7BuySlba8ZkHtu1cb4 4nPKmc6S3qMF3 E1BoLCCczvijoSJdeXfoD H6hGOEhfgaiTZFxbN0nRT AkW6j0FeCgWgJ7KRqyG7M tmdS6TXGxjIEn IGhhHMQ0O89cw4I9IXWfG TJvRMN2gIS7bM9uwMnldb ogbGVmdDsgdmVydGljYWw tKCbuF127KXJz cFdrWBEgnH2pIANliRJrv LysSB1wPVMqgoyfEtJRPG cXKORVDcoaAHnIBZ2FWUE NRUdBTjwvdGQ+ TYErAPO8sRoeCOlqXJGzn T7aNEYhF2i8JtEtZtJ8XF xqH1PkLTBertjhOi39jR5 uQcJyBuP8BIrr Q1VtiwK4FLAwwLOmPFmbK ST4O95pr4Z3QDYqMVXxIU H8vWK9aN7meAtbzqhufAR mdDsgdmVydGlj HSwpWJynL403LRUniXnvJ iK6IzX1IpT3YEF3D1FuJj y5CEEywRasMI1lqPStBPz yOv8uvTeihMpr DB9jUHAhkbmiBUPseU2zP MTqvKRmpKerHF7cGAQape chd430RhSrFFH6ELOveWM tQ1FswW5fFvMz ZKUpUOXoM9YvaLLmYKhnQ 863PMyxIoO7NGFbpxRlU9 LrRVAziWdsZlU2g3Q1Rx7 zMCBZZWFyczwv dGQ+RGTjYRX4yRmwRChiY MZumM9tYJWuV7g6WqHaSc E8MPrlD1PeBBLpipbnZj4 1lV9wQfYcYmP2 PHbtC5EevnG2XJMcrVYjA CoxOSB5A17av8L9CFJrYI GpPOZ2lCO0lT3arCbsdca gbGVmdDsgdmVy fXhdPSkpGZrsU066WAAks DsnPkZFTUFMRTwvdGQ+PH TbBDL0oByzJFelFAQzvF8 aLAQwS8e3GoTo MnS5BJedW2NmVJMnpptmH w40rC4qVuSaDgN6HPrbC0 VnawI0ZSWgwJPgVRmrVKH 3L80ug6D5UHVh XRFyAIU1gAE0fW5iaJmut jogbGVmdDsgdmVydGljYW hlIRekP967SZIlyYseDb2 VSY70XT54V1Oh PjwvdGFibGU+PHRhYmxlI HdpZHRoPScxMDAlJyBzdH qrSA4vHm9vKJDnMUOdqIp kdEDzDsCzi7cm SKIeUOpkIZ3qkQfqC1Lip XH7YEPqs5v4Cx62T31cR4 JvdXA+CWXudFF1lEQ8iN9 iBzRdKcJ3UOjf O553RbSbcKXzKormz4tol 5ztbEa2IjIuBJXdhfJjeM qkMOY2r9MnNc77N16eFVi pZHRoPSIyMCUi FUZpqNkdlh7cvC7hQh0+P FLleZV7gIL0eY5fBxJzYp A3RCicD868HdJrpTJwJda gY51mI4PorXN+ JSShEep4YLEbkRbhAI2qw WGiPMfgUx9lZZT2PxIsIs HrWAcdH5SdLAVvyhwseee lzDI2QGFfMDPm gT30Bx1vzQxoQh1hRWUeJ BO0AUJrlWSfU7XhkZ7tNd XcGFXeOKYlL8VhxVXlCDj rD724SIfwVoH8 IQTdmtPvB6LaCFAanSqlK iO3t3Q9Nq8GsWghzFRcPF 2pRzOtCWm4N9WqZlb8ICN hyHezZZ4kqWEp GLwqGy4kxHmutWksKD7eK INxthgtf470YxYme2srYJ YerOZxQNzmHGT1D34em5P 8IYIcCXNiWHT2 rRB0zG1gmMeqpyuihDUsa DsgdmVydGljYWwtYWxpZ2 91OZFagRejSiRDVol9Q3Y yYvg2IYKhnEbn PV6naJJuWTbiWb8jpCajr ZafXM2hWBXeqtzoe795Cg Tav7olWEHdfAGlMPacITB 5E51lu3I0TNFy GRAgBBC1jNA7lQ7bnUpzm jogbGVmdDsgdmVydGljYW fvIAbsX532DJPxwIbePk0 WKby3I7DjBcd3 VOJhwUibOM9jaUWxURhgS d5mxTnqtXeyZQ4wYPVfea xxd350JcKbv1npLFUqtMN dAIlaZJU8P23b i8B9XYImCAPtUCR0eHJ9u T5yhHnavslotNAjeNorlf WzbGbsYFtsHQygP437BDW vcDsnPlBheWVy OjwvdGQ+IC80zv20J8KbU onmJha2WTUfSJM6cRY1qN 1oGWDmVMqgn6X6uTD4Q3Z tubWewu1hz2sc YXB (more content not included)... [facility] Coding Summaryon 11-05-2020 Coding Summary HTMLBase 64 QvhljfraXFy0lPt+PGhlY WQ+EX1KYDIlC92udUOsnU 1AJ5jJGO5CCHCOIPNVCJ2 KMF8cxVW1XQrgJ3ShkaNr JldiyMYrEK01MUk0EXN4w PgmPPsofW2wvUAvZ8l7Lo ZaYG60cD99DSyzZQIyRwO 3LjZpbjsgbWFy U5cwTnMzfBLnKcz+PHRhY mxlIHdpZHRoPScxMDAlJy YchMdgFL3iNk7sDYHiHKZ vbGxhcHNlOiBj d5qmPWOkWEscYZ1dtEtpE 4VzrBJ8RTBel6u7Bd27aO I+MNXaWFF1dHllMGovt01 3QjFup9ajOFS8 dSLqZAypQKH1I01xh5F4D NUrGBYjZLH5gCE1uK9ciU gihgcgF3NiwVWtWrT1OUS 2dWImbV4fbDlj rihuhH2tIts+L48DSU0HX SGBFZ6RGlv8I3LoNtvuuW I+FU16ZZPmSL36rYZkhFB le1plpNy8ZyYy XTBfOVS3aCffNKpce0EsC CZeQ98koKYgh3N5FVYrhT sgbTNqUqByiID0pD4rAGu fjyhxt3qqtwoo Nacxi7ziuz59gR57C99rG KglOVUpIOH0PEDhVXFjyB mfop4moG2pPr0+DDsgp6d ej3vxyQg9AiPv OYXnvpOgvXawYEX7f4NtR q32N6SwpWtrq4XxFax9wu 16mKKvo6W8xWI3LKzmVIH onX7fNDgmQgA2 YGQgKqWyoW82qGIgGFmqE w5ulOwpmCekCK5mYSIkcj lwBMBtxE7fDZJioTUpzRk sII0bPEXeuiej i420VjSoZYB8ISPngQVdD 2HlaW6fSfDuLTIkFFCyM3 FylDUfROisZ225QTcvZoB 5GFXjjoAlJ5Od BPRhlJttZqD5d7U0Zb8Ag 1BzvdfjGQQ4PFrpRSK3In WxVgOfQmI8P2WhHam0TGP njJfcQP5aI3Sj GYYbfzdqzcrujKV9LNXqK IVjnH25qGZnNApdZp2fy1 B7j661UZElNIQzfA00By8 udDogMTBwdCBU sA1xlfogm8pbpwygHrLnB FRfPFa2GSh5ATEtgAvpMh RqKYG9IwZ7KVJ1vPPbbI6 dxTdfiomphA8y Oyc+R24ogG6tTYL4JCT2l jxnHNBkilNfEE87TS85S9 RyPjwvdGFibGU+PGRpdiB pgXofCQ2pRgWw y5mii9TaRTmsQ8RkKQZsC MfiYng8BSGcGYH4iGR0aB 4xOJEpNEybh9J2oIO2Z5X lpnHibg5li7dw NQDlKQiuT35ioWDoh6R7G HOekRY6OQEdaWwaBgIevI 93Oyc+ENCweYkjc7LpBdl ep1osh5xktXs9 NyIvCXDrqxJxxFoqVPX5a 3YnIf54A47dNAhcOMNdUM ApSTJrJAMgpVwiqv6ybL5 wIi8+PGNvbCB3 cON5hW0vSWXwOkF1JNfvY 353FyKbqQTkDtrtr0ygc0 fzoSf4WqIwLXSrfyWiiVy rWOY8n7JwPv17 C34oIBypXZDiBEGgTUVhN ZGjlPskff1hmB7wBe1+PC 3bn8ylyz12rQ00nWE+PHR wTNX0nQxiMQan IYFswX0tBIscKwA4YTYyY sTejB15iCSuLEacCm7zjZ ogfKnoVQ3zWOYrmqjfv91 4ShWim4muIYEk bFNyTCrsFUK1H85ip7G3L MWuIZLhLKW1nIF5mK0cgP lnbjogbGVmdDsgdmVydGl vWSgsGZhxK781 IHRvcDsnPlBhdGllbnQgT oXnEJi8Q1MxMvo3DIUpbH xmYV5szPIrPFrqIw7azHp twHgfUF6kOHUj uerca167LgVfw9htCDPdt UZkFYowARO5C35zk7J7BK WqJCKyQEN8aBN3qN6gqKq nbjogbGVmdDsg gyYqtXxgRQfpIBroT519S HRvcDsnPkJpcnRoIERhdG P9GC23MF75pTDld7X8tJU 8K3UsTNZzcjqw oljzzNP9KKWmVTZtsK55K l5fvPseAh1ySCFrXTU6WE YwzMQgY7HxdO5wAsIdFGE eNSOiS1QrdTFq KKmoW770GGstPtI5VRAoj rExH6HsWYXczNwtKkF9b8 O2Vb9RE1J3PF94YW23tYO mn6J6dFH6C7Wf DLZutbpebdeujRJ3PNCpM LLmdD90Jz0ziApfZo7kLO XhLFH9QSFmtXZwP3WadL2 yOiAjMDAwMDAw G9XqvDSpKVnuM893OElaZ cI8SSNjlyZxB2BkZITzeF ptLlL1b3W2Go2NHLg8MV6 5NP70wXAme8T5 lNB4D2OvINBlvwpwgcwhj LA4PNDyGVHneD51Ne9jfU hcRg8lTJAbYDU1TSXdxPR sN9WhtV3mMiZj JEVhCJHbV0AxnCMtZOsxJ 637QFywTjA2OFQoqsVaY6 GbLFChlWgzVpB4i6R2Qq1 RXFHpEP78VRH4 cJH7HJ31UY96J5OjDniwz GFibGU+PHRhYmxlIHdpZH RoPScxMDAlJyBzdHlsZT0 vLt9nGNKpJAEn nAexyVToYqHwj4hpWMTkN QroTY4nfQosM4KzdKD1TS Djy1i4Wb60U00dR2SgfNO +TPCdjTB9gKT4 lE4fYeVkBbJ5XAgfS247N rSquRPmRddmd7zxk7stuQ h6ZfC2WIBqacXxcYyyTDF 8n6UzOo29Y33k IHdpZHRoPSIxNSUiIHZhb Lcgbv2hsF2pAy9+PGNvbC A6eSM6jH5qVcWfZiR8LAb gZ463FpZowPHc Gxohc9gby6wtvXm6GhIjQ ZDbwsMvfLwqSIU3x5ZeWw 57F1BepDvta6ZsKcp6ak8 0cSCcc6U4aCV9 N6AbHACcykbzwVKliXagI J0pXIQkvhspVLSsxN6xTJ RbV3x7YyMvStV4KMoyT6E emtU8YRWmiYUk DEfdIDQ3N72kt5G4GBCrH TMeWXX7cKX7zS1kyBdjmh ogbGVmdDsgdmVydGljYWw wHApmJ219CYFd uImoSQZdkV1cFDIsgQCjm NjvSD2zRQVuxsdvFcXIWZ xRCBHDHersUNuGAJ5MEGA NRUdBTjwvdGQ+ NVBlCEF6iPivRRzyRZFck M6eHKNtB4g7YeTxPdM9UY adO9SpNFPxnftmCj40wH7 tQvSoEsQ9PPbw I0WaylV8PZIdlPRwFCeeC NL7U27dg0E4RAWhFVGzGG E7hXY4zH6eyLfygvajdCD mdDsgdmVydGlj BSjhDTcdB858ABGheHatJ sJ6GtS5FqS5CAG2P0SjAu v2SLMbhEltIY9jdWLtJDu oTg3gjVcqzLol PW7rJYNmbvykKFZucG8zL DMlcFGcsRfdIU0bQSLlqy gfy244KoMoCYA4SHXewQF tH9YblF1fQtGz NSWyHZWhN9FpjRBkIFrtD 028YMghNdH8HBRldcIpH4 ChYASlgAclEqT7l5O1Fa4 zMCBZZWFyczwv dGQ+RMIjLUB0hNcoDKccW MBqnS7rBRKaO4l8QoVhBn P6FOgaI3VdHQSwlkhdAz9 6jG0mSnOoGyO0 WDplG1NeynW4TQZloUDpJ SdbRZR1H75kf5V7JJXzVR IcQGG0cNF1tS9nyFbwgib gbGVmdDsgdmVy aGxvSYziFXtjA784VAYog DsnPkZFTUFMRTwvdGQ+PH ZjTXC3wCdeLBtlPQOnlE6 mCKNgR6z4SnTj YqX0XWjzQ5ZwLXCflpkhN y35gA2eMtCgRzD7OFrxY3 TnhoU0MHVfxGRzJAulGNM 9O35qq2F2NVXz LEUoUQY4lWV9iB8heVoyz jogbGVmdDsgdmVydGljYW aiHWstJ924QCKavMweEjU heSBTdXJnZXJ5 QW19XZ52T9QnMtrvxKEvp +PHRhYmxlIHdpZHRoPS soBUDqMzFybJvxRL4cCv5 yZGVyLWNvbGxh mNApToYgq7wfGGXgOIclQ Y0wtRjzR7KczOF5DQUnb2 t9Ch88I71zN9RjnKP+PGN mbUP0tTP7jS9r GhOeQdJ3QCgnP104FyVsr WLvRrprk6vql8deoRm8Ph YeNTNjveQenDieMTQ8n4O jDo97B11gACxh ZHRoPSIyMCUiIHZhbGlnb l1vcB4kDu6+KTGydDI3jX O1cV9sQoRcJdS0LQckP05 9InRvcCIvPjwv W53eD6YiqZD+ZKNeUfl4M ZTcmKmpEH8uiHNmYJqcDe 3wBRE2KhWnTmOvIHkrY3H hZGRpbmctcmln bMY9JXHwZXEynH58Al3ry XudKv2sTTOnJLU1MKNerK PiA3KhuJ0fYpAgGLEdTCF eC2RmaDAvRAuo Y657UVmaLsL1QLNrcsZbH 6MiDSQrmCmgXzA1b5Z3Fv 3UeTxjoCHuJE2fYnTtCBi 2Q5ViSfz9GIQa aAkrRR8unTVqZKpoAa8to HjdvUwsOH4wFYXnvdoni5 91IvTbj4urNGVsbLMzAWh qDIG5O66mk2A7 TVMhUECvINF3zPD2tG1nn GlnbjogbGVmdDsgdmVydG lkVTvsPIacL857SSOtbMl sUjWATft5L3Pu Pbk2APQhsOhfBY2znFUiD RrqRs2dtLincFquUT7bXB Pltigqj515UxCai8vzSOZ wcHQgVGltZXM7 M21jg5G8GGRxTKUzAEB2b ZQ4xM4gcLivyistlNVuxK fsirIgtCndPEdzNUxrS00 9HKSecIlfFj7O Wxo1L2ArVby1TJYglHffU S4hiGJeCFjqTx0fmViuhV vgPO1yZRMypbnxi118GpS ik0ydFUEvmLFr XUybKPS0O86zx9J1IRRpD CUfLVK1eNG3lP5euAekmw ogbGVmdDsgdmVydGljYWw wGIpqV473MJBx cDsnPlBheWVyOjwvdGQ+P W16wf82A1RyDnziAmk4WH TiPBL8xMB2pG3jGYSpAIu fn2H7aPQ9A7Yx cmR (more content not included)... Normal [facility] Inpatient Patient Summaryon 11-04-2020 Inpatient Patient Summary [address] [address] Patient Discharge Instructions Name: LORI DECKER : 1990 Patient Address: [address] [place] [address] Primary Care Provider: Name: FRANK LINARES After you are discharged if you find you have any questions, please, call [phone] to speak to a nurse. Discharge Diagnosis: Trimalleolar fracture of left ankle Prescription Information: If you have been given a prescription for narcotics, seek immediate medical attention if you have any difficulty breathing or any sudden status changes such as confusion and sleepiness. If you or anyone you know is experiencing suicidal thoughts, mental health, alcohol and/or drug addiction problems; contact the [facility] 15/02 Crisis Hotline -Text 4HEQD to 504253. If you received any narcotics, sedation, or any other medication that causes drowsiness for the next 24 hours, unless otherwise directed: ? Do not drive a car. ? Do not operate machinery such as power tools, lawn mowers, drills, sewing machines, or stoves ? Avoid alcoholic beverages and drugs for allergies, nerves, or sleep ? Do not make important personal or business decisions or sign any legal documents [facility] would like to thank you for allowing us to assist you with your healthcare needs. The following includes patient education materials and information regarding your injury/illness. LORI DECKER has been given the following list of follow-up instructions, prescriptions, and patient education materials: Follow-up Instructions Medications During the course of your visit, your medication list was updated with the most current information. The details of those changes are reflected below: Medications to Continue That Have Not Changed Other Medications acetaminophen-oxycodo ne (acetaminophen-oxycod one 325 mg-5 mg oral tablet) 1 tab(s) Oral Every 4 hours as needed for pain. metoprolol (metoprolol succinate 25 mg oral tablet, extended release) 1 tab(s) Oral every day. It is important to always keep an active list of medications available so that you can share with other providers and manage your medications appropriately. As an additional courtesy, we are also providing you with your final active medications list that you can keep with you. acetaminophen-oxycodo ne (acetaminophen-oxycod one 325 mg-5 mg oral tablet) 1 tab(s) Oral Every 4 hours as needed for pain. metoprolol (metoprolol succinate 25 mg oral tablet, extended release) 1 tab(s) Oral every day. Take only the medications listed above. Contact your doctor prior to taking any medications not on this list. Diet & Activity Patient Activity Level: Patient Diet: Regular Patient Activity Restrictions: Comment: Patient education materials, if any, will display below Ankle Fracture The ankle joint is made up of the lower (distal) sections of your lower leg bones (tibia and fibula) along with a bone in your foot (talus). An ankle fracture is a break in one, two, or all three of these sections of bone. There are two general types of ankle fractures: ? Stable fracture. This happens when one of your bones is broken, but the bones of your ankle joint stay in their normal positions. ? Unstable fracture. This type can include more than one broken bone. It can also happen if your outer bone is broken and the tough bands of tissue that connect bones (ligaments) are also injured at your inner ankle. This type of fracture allows the talus to move out of its normal position. What are the causes? This condition may be caused by: ? A hard, direct hit (blow) to the ankle. ? Quickly and severely twisting your ankle, often while your foot is planted and the rest of your body moving. ? Trauma, such as a car accident or falling from a height. What increases the risk? This condition is more likely to occur in people who: ? Smoke. ? Are overweight. ? Participate in sports that involve quick direction changes, as in soccer. ? Do high-impact sports like gymnastics or football. ? Are involved in a high-impact car accident. What are the signs or symptoms? Symptoms of this condition include: ? Tender and swollen ankle. ? Bruising around the injured ankle. ? Pain when moving or pressing on the ankle. ? Trouble walking or using the ankle to support your body weight (putting weight on the ankle). ? Pain that gets worse when moving or standing and gets better with rest. How is this diagnosed? An ankle fracture is usually diagnosed with a physical exam and X-rays. A CT scan or MRI may also be done. How is this treated? Treatment for this condition depends on the type of ankle fracture you have. Stable fractures are treated with a cast, boot, or splint to hold (more content not included)... [facility] MAGR Preoperative Recordon 0 11-04-2020 MAGR Preoperative Record MAGR Pre-Op Record Summary Primary Physician: Mick Patiño DO Finalized Date/Time: 11/04/20 11:33:53 Pt. Name: LORI DECKER /Sex: 1990 FEMALE Med Rec #: [id number] Physician: Mick Patiño DO Financial #: [id number] Pt. Type: D Room/Bed: / Admit/Disch: 11/04/20 07:48:00 - Institution: Pre-Op Case Times MAGR Pre-Care Text: Patient will be optimally prepared for surgery. Patient is free from s/s of injury. Provide information to patient/family related to plan of care. Verify patient allergies. Confirm identity and verify consent before the operative or invasive procedure. Entry 1 Patient Arrival Time 11/04/20 07:56:00 Preop Departure 11/04/20 11:30:00 Last Modified By: Sharri Rios RN 11/04/20 11:33:48 Post-Care Text: Patient is prepared mentally and physically and is ready for surgery. The patient remains free from s/s of injury. Patient/family express understanding of plan of care and participate in decisions affecting his or her perioperrative plan of care. Allergies documented appropriately. Patient identifiers and consent correct. General Comments: Pt arrives per W/C. Pt denies any CP, SOB, Hx of S/S of flu, or sleep apnea. Disch instructions reviewed with pt incl. anesth restrictions, verbalized understanding pt dcd per w/c to private car due to surgery being cancelled. Finalized By: Sharri Rios RN Document Signatures Signed By: Sharri Rios RN 11/04/20 11:33 [facility] Patient Handouton 11-04-2020 Patient Handout Orthopedics Ankle Fracture The ankle joint is made up of the lower (distal) sections of your lower leg bones (tibia and fibula) along with a bone in your foot (talus). An ankle fracture is a break in one, two, or all three of these sections of bone. There are two general types of ankle fractures: ? Stable fracture. This happens when one of your bones is broken, but the bones of your ankle joint stay in their normal positions. ? Unstable fracture. This type can include more than one broken bone. It can also happen if your outer bone is broken and the tough bands of tissue that connect bones (ligaments) are also injured at your inner ankle. This type of fracture allows the talus to move out of its normal position. What are the causes? This condition may be caused by: ? A hard, direct hit (blow) to the ankle. ? Quickly and severely twisting your ankle, often while your foot is planted and the rest of your body moving. ? Trauma, such as a car accident or falling from a height. What increases the risk? This condition is more likely to occur in people who: ? Smoke. ? Are overweight. ? Participate in sports that involve quick direction changes, as in soccer. ? Do high-impact sports like gymnastics or football. ? Are involved in a high-impact car accident. What are the signs or symptoms? Symptoms of this condition include: ? Tender and swollen ankle. ? Bruising around the injured ankle. ? Pain when moving or pressing on the ankle. ? Trouble walking or using the ankle to support your body weight (putting weight on the ankle). ? Pain that gets worse when moving or standing and gets better with rest. How is this diagnosed? An ankle fracture is usually diagnosed with a physical exam and X-rays. A CT scan or MRI may also be done. How is this treated? Treatment for this condition depends on the type of ankle fracture you have. Stable fractures are treated with a cast, boot, or splint to hold the ankle still and crutches to avoid putting weight on the injured ankle until the fracture heals. Unstable fractures require surgery to ensure that the bones heal properly. After surgery, you will have a splint. After your incision is healed, your surgeon may give you a cast or a boot. You will not be able to put weight on your injured side for several weeks. After your ankle has healed, you will do exercises to improve the strength and mobility of your ankle. Follow these instructions at home: If you have a splint: ? Wear the splint as told by your health care provider. Remove it only as told by your health care provider. ? Loosen the splint if your toes tingle, become numb, or turn cold and blue. ? Keep the splint clean. ? If the splint is not waterproof: ? Do not let it get wet. ? Cover it with a watertight covering when you take a bath or a shower. If you have a cast: ? Do not stick anything inside the cast to scratch your skin. Doing that increases your risk of infection. ? Check the skin around the cast every day. Tell your health care provider about any concerns. ? You may put lotion on dry skin around the edges of the cast. Do not put lotion on the skin underneath the cast. ? Keep the cast clean. ? If the cast is not waterproof: ? Do not let it get wet. ? Cover it with a watertight covering when you take a bath or a shower. Managing pain, stiffness, and swelling ? If directed, put ice on the injured area: ? If you have a removable splint, remove it as told by your health care provider. ? Put ice in a plastic bag. ? Place a towel between your skin and the bag or between your cast and the bag. ? Leave the ice on for 20 minutes, 2?3 times a day. ? Move your toes often to avoid stiffness and to lessen swelling. ? Raise (elevate) the injured area above the level of your heart while you are sitting or lying down. General instructions ? Do not use the injured limb to support your body weight until your health care provider says that you can. Use crutches as told by your health care provider ? Take [id number] and prescription medicines only as told by your health care provider. ? Ask your health care provider when it is safe to drive if you have a cast or splint. ? Do exercises as told by your health care provider. ? Do not use any products that contain nicotine or tobacco, such as cigarettes and e-cigarettes. These can delay bone healing. If you need help quitting, ask your health care provider ? Keep all follow-up visits as told by your health care provider. This is important. Contact a health care provider if: ? You have pain or swelling that gets worse or does not get better with rest or medicine. Get help right away if: ? Your cast gets damaged. ? You have severe pain that lasts. ? You develop new pain or swelling. ? Your skin or toenails below the injury turn blue or ventura, feel (more content not included)... [facility] Test Urine 1on U Preg Negative [facility] Comment on above: Performed By: #### 3 [id number] ####[facility] (DEFAULT)[address] [place] [address] [id number] U Preg Internal Control Pass [facility] Comment on above: Performed By: #### 3 [id number] ####[facility] (DEFAULT)[address] [place] [address] [id number] Progress Note-Physicianon Progress Note-Physician The patient was scheduled to have an open reduction internal fixation of the left ankle. But in the last minutes prior to surgery her insurance, [facility] Medicaid, denied the surgery and indicated that they would take up to 10 days to review the case Apparently they communicated to the staff that this is not an urgent case. [Electronically Signed on: 11/04/2020 10:35 EDT] Mick Patiño DO [Verified on: 11/04/2020 10:35 EDT] Mick Patiño DO [facility] Standardon 11-01-2020 eGFR Non AA >60 Invalid Interpretation Code [facility] Comment on above: Performed By: #### 1 [id number] #### [facility] (DEFAULT) [address] [place] [address] 82351 eGFR AA >60 Invalid Interpretation [facility] Comment on above: Result Comment: Dietitian Consultant sarah Kidney disease could be indicated at eGFRs of less than 60 ml/min/1.73m2. Kidney Failure is indicated at less than 15 ml/min/1.73m2 Performed By: #### 1 [id number] #### [facility] (DEFAULT) [address] [place] [address] 95334 Anion gap [Moles/Vol] 12.0 mmol/L Normal 5.0-19.0 [facility] Comment on above: Performed By: #### 1 [id number] #### [facility] (DEFAULT) [address] [place] [address] 45454 Calcium [Mass/Vol] 9.1 mg/dL Normal 8.9-10.3 [facility] Comment on above: Performed By: #### 1 [id number] #### [facility] (DEFAULT) [address] [place] [address] 19454 Chloride [Moles/Vol] 106 mmol/L Normal 101-111 [facility] Comment on above: Performed By: #### 1 [id number] #### [facility] (DEFAULT) [address] [place] [address] 67136 CO2 [Moles/Vol] 22 mmol/L Normal 21-32 [facility] Comment on above: Performed By: #### 1 [id number] #### [facility] (DEFAULT) [address] [place] [address] 01154 Creatinine [Mass/Vol] 0.53 mg/dL Low 0.60-1.30 [facility] Comment on above: Performed By: #### 1 [id number] #### [facility] (DEFAULT) [address] [place] [address] 48102 Glucose [Mass/Vol] 117.0 mg/dL Normal 74.0-118.0 [facility] Comment on above: Performed By: #### 1 [id number] #### [facility] (DEFAULT) [address] [place] [address] 10922 Osmolality 271 mOsm/L Invalid Interpretation Code [facility] Comment on above: Performed By: #### 1 [id number] #### [facility] (DEFAULT) [address] [place] [address] 84556 Potassium [Moles/Vol] 4.0 mmol/L Normal 3.6-5.1 [facility] Comment on above: Performed By: #### 1 [id number] #### [facility] (DEFAULT) [address] [place] [address] 93518 Sodium [Moles/Vol] 136.0 mmol/L Normal 136.0-144.0 [facility] Comment on above: Performed By: #### 1 [id number] #### [facility] (DEFAULT) [address] [place] [address] Urea nitrogen [Mass/Vol] 7 mg/dL Low 8-26 [facility] Comment on above: Performed By: #### 1 [id number] #### [facility] (DEFAULT) [address] [place] [address] Urea nitrogen/Creatinine [Mass ratio] 13.0 mg/mg Normal 4.6-16.2 [facility] Comment on above: Performed By: #### 1 [id number] #### [facility] (DEFAULT) [address] [place] [address] SARS-CoV-2 (COVID-19) PCRon 11-01-2020 Employed in healthcare? No Invalid Interpretation Code [facility] Comment on above: Performed By: #### 6 [id number] ####[facility] (DEFAULT)[address] [place] [address] Group care resident? No Invalid Interpretation Code [facility] Comment on above: Performed By: #### 6 [id number] ####[facility] (DEFAULT)[address] [place] [address] In ICU? No Invalid Interpretation Code [facility] Comment on above: Performed By: #### 6 [id number] ####[facility] (DEFAULT)[address] [place] [address] status? Not Invalid Interpretation Code [facility] Comment on above: Performed By: #### 6 [id number] ####[facility] (DEFAULT)[address] [place] [address] SARS-CoV-2 (COVID-19) RNA RICHIE+probe Ql (Unsp spec) Not detected Normal Not Detected [facility] Comment on above: Result Comment: Perf ormed by PCR methodology. Performed By: #### 6 [id number] ####[facility] (DEFAULT)[address] [place] [address] SARS-CoV-2 (COVID-19) RNA RICHIE+probe Ql (Unsp spec) No Invalid Interpretation Code [facility] Comment on above: Performed By: #### 6 [id number] ####[facility] (DEFAULT)[address] [place] [address] Symptomatic as defined by CDC? No Invalid Interpretation Code [facility] Comment on above: Performed By: #### 6 [id number] ####[facility] (DEFAULT)[address] [place] [address] Vital Signs Date Time Vital Sign Value Performing Clinician Rafita valles 08-09-2024 14:18-0500 Body height 170.2 cm Nolvia Hemmer PA Work Phone: [facility] 08-09-2024 14:18-0500 Body mass index (BMI) [Ratio] 49.05 kg/m2 Nolvia Hemmer PA Work Phone: [facility] 08-09-2024 14:18-0500 Body temperature 99 [degF] Nolvia Hemmer PA Work Phone: [facility] 08-09-2024 14:18-0500 Body weight 142.07 kg Nolvia Hemmer PA Work Phone: [facility] 08-09-2024 14:18-0500 Diastolic blood pressure 94 mm[Hg] Nolvia Hemmer PA Work Phone: [facility] 08-09-2024 14:18-0500 Heart rate 77 /min Nolvia Hemmer PA Work Phone: [facility] 08-09-2024 14:18-0500 Respiratory rate 16 /min Nolvia Hemmer PA Work Phone: [facility] 08-09-2024 14:18-0500 SaO2% (BldA) [Mass fraction] 98 % Nolvia Hemmer PA Work Phone: [facility] 08-09-2024 14:18-0500 Systolic blood pressure 138 mm[Hg] Nolvia Hemmer PA Work Phone: [facility] 05-31-2024 13:48-0500 Body height 170.2 cm Nolvia Hemmer PA Work Phone: [facility] 05-31-2024 13:48-0500 Body mass index (BMI) [Ratio] 49.43 kg/m2 Nolvia Hemmer PA Work Phone: [facility] 05-31-2024 13:48-0500 Body weight 143.16 kg Nolvia Hemmer PA Work Phone: [facility] 05-31-2024 13:48-0500 Diastolic blood pressure 92 mm[Hg] Nolvia Hemmer PA Work Phone: [facility] 05-31-2024 13:48-0500 Heart rate 72 /min Nolvia Hemmer PA Work Phone: [facility] 05-31-2024 13:48-0500 Respiratory rate 16 /min Nolvai Hemmer PA Work Phone: [facility] 05-31-2024 13:48-0500 SaO2% (BldA) [Mass fraction] 98 % Nolvia Hemmer PA Work Phone: [facility] 05-31-2024 13:48-0500 Systolic blood pressure 136 mm[Hg] Nolvia Hemmer PA Work Phone: [facility] Encounters Encounter Date Encounter Type Care Provider Facility Start: 12-12-2024 End: 12-12-2024 Bamboo flowsheet Victorina Claus DO Work Phone: [facility] Start: 12-12-2024 End: 12-12-2024 Bamboo flowsheet Victorina Claus DO Work Phone: [facility] Start: 08-09-2024 End: 08-09-2024 Office outpatient visit 15 minutes Nolvia Ovalle PA Work Phone: [facility] Comment on above: Acute non-recurrent maxillary sinusitis (Primary Dx) Start: 08-09-2024 End: 08-09-2024 ambulatory NOLVIA OVALLE Not Available Start: 08-09-2024 End: 08-09-2024 Bamboo flowsheet Nolvia Ovalle PA Work Phone: [facility] Start: 08-09-2024 End: 08-09-2024 Bamboo flowsheet Nolvia POTTS Work Phone: [facility] Start: 07-12-2024 End: 07-12-2024 Clinisync Result Encounter Nolvia POTTS Work Phone: [facility] Unsolicited Start: 07-12-2024 End: 07-12-2024 Clinisync Result Encounter Nolviakrystyna POTTS Work Phone: [facility] Unsolicited Start: 05-31-2024 End: 05-31-2024 Bamboo flowsheet Nolvia POTTS Work Phone: [facility] Start: 05-31-2024 End: 05-31-2024 Bamboo flowsheet Nolvia POTTS Work Phone: [facility] Start: 05-31-2024 End: 05-31-2024 Office outpatient visit 25 minutes Nolvia POTTS Work Phone: [facility] Comment on above: Essential hypertensi on (CMS/HCC) (Primary Dx); Menorrhagia with regular cycle; Abnormal vaginal bleeding; Tinea pedis of both feet; Onychomycosis of toenail; Iron deficiency anemia due to chronic blood loss; Morbid obesity (CMS/HCC) Start: 05-31-2024 End: 05-31-2024 ambulatory NOLVIA OVALLE Not Available Start: 01-26-2024 End: 01-26-2024 ambulatory NOLVIA OVALLE Not Available Start: 08-12-2022 End: 08-12-[address] VICTORINA DEVLIN . Facility: Procedures Date Procedure Procedure Detail Performing Clinician Start: 07-12-2024 ALL CBC WITH AUTO DIFF Nolvia POTTS Work Phone: Start: 08-12-2022 Microscopic observat ion [Identifier] in Cervix by Cyto stain Victorina Devlin DO Work Phone: Plan of Treatment Date Care Activity Detail Author Start: 08-12-2027 Screening for malign ant neoplasm of cervix [facility] Start: 08-07-2025 Screening for malign ant neoplasm of cervix [facility] Start: 03-26-2025 Influenza vaccination Influenz a Vaccine (Season Ended) [facility] Start: 01-22-2025 Influenza vaccination Influenza Vacc ine (#1) [facility] Comment on above: Postponed from 03/26 (Patient Refused) Start: 12-12-2024 End: 12-12-2024 Patient encounter procedure [facility] Comment on above: Arrived Start: 08-31-2024 End: 08-31-2024 Patient encounter procedure 08/31/2024 9:00 AM EST Office Visit [facility] [address] [place] [address] Nolvia Ovalle PA [address] [place] [address] [facility] Start: 08-09-2024 End: 08-09-2024 Patient encounter procedure 08/09/2024 2:30 PM EST Office Visit [facility] [address] [place] [address] Nolvia Ovalle PA [address] [place] [address] Arrived [facility] Comment on above: Arrived Start: 07-12-2024 End: 05-31-2025 CBC panel - Blood by Automated count CBC Lab Routine Essential hypertension (CMS/HCC) Iron deficiency anemia due to chronic blood loss Expected: 07/12/2024 (Approximate), Expires: 05/31/2025 [facility] Comment on above: Expected: 07/12/2024 (Approximate), Expires: 05/31/2025 Start: 07-12-2024 End: 05-31-2025 Comprehensive metabolic 2000 panel - Serum or Plasma Comprehensive metabolic panel Lab Routine Essential hypertension (CMS/HCC) Onychomycosis of toenail Expected: 07/12/2024 (Approximate), Expires: 05/31/2025 [facility] Work Phone: Comment on above: Expected: 07/12/2024 (Approximate), Expires: 05/31/2025 Start: 07-12-2024 End: 05-31-2025 Iron + transferrin + TIBC Iron + transferrin + TIBC Lab Routine Essential hypertension (CMS/HCC) Iron deficiency anemia due to chronic blood loss Expected: 07/12/2024 (Approximate), Expires: 05/31/2025 [facility] Comment on above: Expected: 07/12/2024 (Approximate), Expires: 05/31/2025 Start: 05-31-2024 End: 05-31-2024 Patient encounter procedure 05/31/2024 2:00 PM EST Office Visit [facility] [address] [place] [id number] Nolvia Ovalle PA [address] [place] [address] Arrived [facility] Comment on above: Arrived Start: 03-26-2024 Influenza vaccination Influenza Vacc ine (#1) [facility] Start: 2010 Screening for malign ant neoplasm of cervix Pap Smear [facility] Immunizations Immunization Date Immunization Notes Care Provider Fa cility 04-08-2007 measles, mumps and rubella virus vaccine Nolvia POTTS Work Phone: [facility] 10-23-1994 diphtheria, tetanus toxoids and acellular pertussis vaccine, unspecified formulation Nolvia POTTS Work Phone: [facility] 10-23-1994 trivalent poliovirus vaccine, live, oral Nolvia POTTS Work Phone: [facility] 07-21-1991 diphtheria, tetanus toxoids and acellular pertussis vaccine, unspecified formulation Nlovia POTTS Work Phone: [facility] 03-25-1991 haemophilus influenz ae type b vaccine, conjugate unspecified formulation Nolvia POTTS Work Phone: [facility] 03-24-1991 measles, mumps and rubella virus vaccine Nolvia POTTS Work Phone: [facility] 09-21-1990 trivalent poliovirus vaccine, live, oral Nolvia POTTS Work Phone: [facility] 08-22-1990 diphtheria, tetanus toxoids and pertussis vaccine Nolvia Hemmer PA Work Phone: [facility] 05-30-1990 diphtheria, tetanus toxoids and pertussis vaccine Nolvia Hemmer PA Work Phone: [facility] 05-30-1990 trivalent poliovirus vaccine, live, oral Nolvia Hemmer PA Work Phone: [facility] 03-07-1990 diphtheria, tetanus toxoids and pertussis vaccine Nolvia Hemmer PA Work Phone: [facility] 03-07-1990 trivalent poliovirus vaccine, live, oral Nolvia Hemmer PA Work Phone: [facility] Payers Date Payer Category Payer Private Health Insurance [facility] MEDICAID [id number] 2016 Medicaid [id number] 1989 Unknown [id number] 1989 Unknown [id number] 1989 Unknown [id number] 1989 Unknown [id number] 1959 Unknown [id number] Social History Date Type Detail Facility Start: 01-26-2024 Tobacco smoking stat [facility] Never smoked tobacco [facility] Start: 01-26-2024 Tobacco use and exposure Smoke less tobacco non-user [facility] Start: 01-26-2024 End: 08-09-2024 Alcoholic beverage intake Current drinker of alcohol (finding) [facility] Start: 01-26-2024 End: 08-09-2024 History of Social function [facility] Start: 01-26-2024 End: 08-09-2024 [id number] Health Literacy [facility] How often do you nee d to have someone help you when you read instructions, pamphlets, or other written material from your doctor or pharmacy [SILS] Never [facility] Do you belong to any clubs or organizations such as episcopal groups, unions, fraternal or athletic groups, or school groups? No [facility] Are you now , , , , never or living with a partner? Never [facility] How often to you hav e a drink containing alcohol? Monthly or less [facility] How many standard dr inks containing alcohol do you have on a typical day? 1 or 2 [facility] How often do you hav e 6 or more drinks on 1 occasion? Never [facility] How hard is it for y ou to pay for the very basics like food, housing, medical care, and heating Not very hard [facility] Do you feel stress - tense, restless, nervous, or anxious, or unable to sleep at night because your mind is troubled all the time - these days [OSQ] Not at all [facility] (I/We) worried wheth er (my/our) food would run out before (I/we) got money to buy more. Never true [facility] Start: 07-28-2023 Alcohol Comment [address] ks on one occasion/ less than monthly [facility] Start: 1990 Sex assigned at Female [facility] Start: 01-26-2024 Gender identity Identifies as female gender (finding) [facility] Start: 01-26-2024 Sexual orientation Heterosexual (fin dayna) [facility] History of Present illness Narrative 08-09-2024 DELROY Tejada - 08/09/2024 2:30 PM EST Note Date & Type Note Facility 08-09-2024 History of Presen t illness Narrative Images from the original note were not included. Subjective Patient ID: Lori Decker is a 33 y.o. female who presents for URI. Lori is present today for evaluation of URI. Admits sinus pressure, nasal congestion, runny nose, sore throat when it's dry, post nasal drainage, cough with green phlegm, hoarseness. Started Wednesday and has been taking Dayquil, cold and flu meds. Brother recently diagnosed with sinus infection. Current Outpatient Medications on File Prior to Visit Medication Sig Dispense Refill levonorgestrel-ethinyl estradiol (Jolessa) 0.15-0.03 MG tablet Take 1 tablet by mouth Daily 91 tablet 1 metoprolol succinate XL (Toprol-XL) 50 MG 24 hr tablet Take 1 tablet (50 mg) by mouth Daily Do not crush or chew. 90 tablet 1 [DISCONTINUED] terbinafine (LamISIL AT) 1 % cream Apply topically 2 (two) times a day 42 g 1 No current facility-administered medications on file prior to visit. I have reviewed and reconciled the history and medication list with the patient today. No Known Allergies Social History Tobacco Use Smoking status: Never Smokeless tobacco: Never Vaping Use Vaping status: Never Used Substance Use Topics Alcohol use: Yes Comment: 6 or more drinks on one occasion/ less than monthly Drug use: Never Family History Problem Relation Name Age of Onset Hypertension Father Hyperlipidemia Father Past Medical History: Diagnosis Date Anxiety state (CMS/HCC) unspecified Depression (CMS/HCC) Depressive disorder (CMS/HCC) not elsewhere classified Encounter for well woman exam Essential hypertension, benign (CMS/HCC) H/O dilation and curettage History of gallstones Menorrhagia Morbid obesity with BMI of 50.0-59.9, adult (CMS/HCC) Thickened endometrium Past Surgical History: Procedure Laterality Date CHOLECYSTECTOMY 2016 DILATION AND CURETTAGE OF UTERUS 08/30/2020 ORIF ANKLE FRACTURE Left 11/15/2020 Dr. Patiño Visit Vitals BP (!) 138/94 Pulse 77 Temp 99 F Resp 16 Ht 5' 7 Wt 313 lb 3.2 oz SpO2 98% BMI 49.05 kg/m Smoking Status Never BSA 2.59 m Review of Systems Constitutional: Positive for fatigue. Negative for chills and fever. HENT: Positive for congestion, postnasal drip, rhinorrhea, sinus pressure, sinus pain, sore throat and voice change. Negative for ear pain. Respiratory: Positive for cough. Negative for shortness of breath and wheezing. Cardiovascular: Negative for chest pain, palpitations and leg swelling. Gastrointestinal: Negative for abdominal pain, constipation, diarrhea, nausea and vomiting. Objective Physical Exam Constitutional: General: She is not in acute distress. Appearance: She is well-developed. She is obese. HENT: Head: Normocephalic and atraumatic. Right Ear: Tympanic membrane and ear canal normal. Left Ear: Tympanic membrane and ear canal normal. Nose: Congestion present. Mouth/Throat: Mouth: Mucous membranes are moist. Pharynx: Posterior oropharyngeal erythema present. Eyes: General: No scleral icterus. Conjunctiva/sclera: Conjunctivae normal. Cardiovascular: Rate and Rhythm: Normal rate and regular rhythm. Heart sounds: Normal heart sounds. No murmur heard. Pulmonary: Effort: Pulmonary effort is normal. No respiratory distress. Breath sounds: Normal breath sounds. No wheezing, rhonchi or rales. Lymphadenopathy: Cervical: No cervical adenopathy. Skin: General: Skin is warm and dry. Neurological: General: No focal deficit present. Mental Status: She is alert and oriented to person, place, and time. Psychiatric: Mood and Affect: Mood normal. Behavior: Behavior normal. Assessment/Plan Diagnoses and all orders for this visit: Acute non-recurrent maxillary sinusitis - amoxicillin (Amoxil) 250 MG/5ML suspension; Take 10 mL (500 mg) by mouth in the morning and 10 mL (500 mg) before bedtime. Do all this for 7 days. Start the above as directed. Reviewed potential s/e with patient. Can take a probiotic while on antibiotic. Increase water intake, get plenty of rest. Can take OTC Tylenol/Motrin prn. Follow up if no improvement in one week. Follow up for Appointment As Scheduled. documented in this encounter [facility] History of Present illness Narrative 05-31-2024 DELROY Tejada - 05/31/2024 2:00 PM EST Note Date & Type Note Facility 05-31-2024 History of Presen t illness Narrative Images from the original note were not included. HPI athletes foot Additional comments: She has been dealing with athletes foot and toe fungus for about 2 years. Bilateral feet and on bilateral 5th toe she has fungus and fungus on left great toe. She has been using OTC athletes foot and not helping. Med Refill Additional comments: control pill, she does have an appt with [facility] but not until November 2024 so just needs refill until she can get into see him. Last edited by Kathleen Marks LPN on 05/31/2024 1:47 PM. Subjective Patient ID: Lori Decker is a 33 y.o. female who presents for hypertension. Lori is present today for follow up hypertension. Denies chest pain, SOB, blurry vision, headaches. She does not check her BP's at home. She is currently on Metoprolol. Current Outpatient Medications on File Prior to Visit Medication Sig Dispense Refill [DISCONTINUED] baclofen (Lioresal) 10 MG tablet Take 1 tablet (10 mg) by mouth at bedtime for 7 days 7 tablet 0 [DISCONTINUED] levonorgestrel-ethinyl estradiol (Jolessa) 0.15-0.03 MG tablet Take 1 tablet by mouth in the morning. 91 tablet 3 [DISCONTINUED] metoprolol succinate XL (Toprol-XL) 25 MG 24 hr tablet TAKE 1 TABLET BY MOUTH EVERY DAY FOR 100 DAYS 100 tablet 3 No current facility-administered medications on file prior to visit. I have reviewed and reconciled the history and medication list with the patient today. No Known Allergies Social History Tobacco Use Smoking status: Never Smokeless tobacco: Never Vaping Use Vaping status: Never Used Substance Use Topics Alcohol use: Yes Comment: 6 or more drinks on one occasion/ less than monthly Drug use: Never Family History Problem Relation Name Age of Onset Hypertension Father Hyperlipidemia Father Past Medical History: Diagnosis Date Anxiety state (CMS/HCC) unspecified Depression (CMS/HCC) Depressive disorder (CMS/HCC) not elsewhere classified Encounter for well woman exam Essential hypertension, benign (CMS/HCC) H/O dilation and curettage History of gallstones Menorrhagia Morbid obesity with BMI of 50.0-59.9, adult (CMS/HCC) Thickened endometrium Past Surgical History: Procedure Laterality Date CHOLECYSTECTOMY 2016 DILATION AND CURETTAGE OF UTERUS 08/30/2020 ORIF ANKLE FRACTURE Left 11/15/2020 Dr. Patiño Visit Vitals BP (!) 136/92 Pulse 72 Resp 16 Ht 5' 7 Wt 315 lb 9.6 oz SpO2 98% BMI 49.43 kg/m Smoking Status Never BSA 2.6 m Review of Systems Constitutional: Negative for chills, fatigue and fever. Respiratory: Negative for cough, shortness of breath and wheezing. Cardiovascular: Negative for chest pain, palpitations and leg swelling. Gastrointestinal: Negative for abdominal pain, constipation, diarrhea, nausea and vomiting. Skin: Positive for rash. Objective Physical Exam Constitutional: General: She is not in acute distress. Appearance: She is well-developed. She is obese. Comments: Very pleasant HENT: Head: Normocephalic and atraumatic. Eyes: General: No scleral icterus. Conjunctiva/sclera: Conjunctivae normal. Cardiovascular: Rate and Rhythm: Normal rate and regular rhythm. Heart sounds: Normal heart sounds. No murmur heard. Pulmonary: Effort: Pulmonary effort is normal. No respiratory distress. Breath sounds: Normal breath sounds. No wheezing, rhonchi or rales. Skin: General: Skin is warm and dry. Comments: Bilateral 5th toenails and medial edge of left great toenail thickened with yellow/day discolorations. Skin between 4th and 5th toes bilaterally with erythema, peeling, pruritic. No drainage. Neurological: General: No focal deficit present. Mental Status: She is alert and oriented to person, place, and time. Psychiatric: Mood and Affect: Mood normal. Behavior: Behavior normal. Assessment/Plan Diagnoses and all orders for this visit: Essential hypertension (CMS/HCC) - Comprehensive metabolic panel; Future - Iron + transferrin + TIBC; Future - CBC; Future - metoprolol succinate XL (Toprol-XL) 50 MG 24 hr tablet; Take 1 tablet (50 mg) by mouth Daily Do not crush or chew. BP was 142/92 on recheck. Will have patient increase her Metoprolol to 50 mg daily. Continue to monitor BP at home periodically. Goal is < 130/80. Will recheck at her follow up in 3 months. Menorrhagia with regular cycle Refill provided on pt's OCP. She will follow up with [facility] as scheduled for routine PAP. Tolerating the OCP well. Abnormal vaginal bleeding - levonorgestrel-ethinyl estradiol (Jolessa) 0.15-0.03 MG tablet; Take 1 tablet by mouth Daily See above. Tinea pedis of both feet - terbinafine (LamISIL AT) 1 % cream; Apply topically 2 (two) times a day Start the cream as prescribed to affected areas twice a day. Leave skin open to air when ever possible. Allow skin to fully air dry after showering before getting dressed. Onychomycosis of toenail - terbinafine (LamISIL) 250 MG tablet; Take 1 tablet (250 mg) by mouth Daily - Comprehensive metabolic panel; Future Start Lamisil as prescribed. Reviewed potential s/e including impacting liver function. Will plan to do labs in 6 weeks to recheck liver function. Can also try OTC antifungal nail lacquer. Advised the above treatments may or may not be successful. Could refer to Podiatry in three months if healthy nail growth has not begun. Advised pt that it can take several months for toenails to grow out normally. Iron deficiency anemia due to chronic blood loss - Iron + transferrin + TIBC; Future - CBC; Future Will check pt's blood counts and iron levels when sh has labs drawn in 6 weeks. Morbid obesity (CMS/HCC) Patient has lost 4 pounds since her last appt. Encouraged portion control, decrease simple sugars and carbohydrates, gradually increase activity level. Aim for continued gradual steady weight loss. Follow up in about 3 months (around 08/31/2024) for Hypertension. documented in this encounter [facility] Clinical Note 11-29-2020 Note Date & Type Note Facility 11-29-2020 Note [id number] 11-18-2020 Note Date & Type Note Facility 11-18-2020 Note [id number] 11-18-2020 Note Date & Type Note Facility 11-18-2020 Note [id number] 11-18-2020 Note Date & Type Note Facility 11-18-2020 Note [id number]-15-2020 Note Date & Type Note Facility 11-15-2020 Note [facility] SURGERY Clinical Discharge Summary PERSON INFORMATION Name LORI DECKER Age 29 Years 1990 Sex FEMALE Language Kazakh PCP FRANK LINARES Marital Status Single Med Service Ambulatory Surgery Acct# Arrival 11/15/2020 09:41:25 Visit Reason SURGERY - ORIF LEFT ANKLE Acuity LOS 000 32:20 Address: [address] [place] [address] Comment: PROVIDER INFORMATION VITALS INFORMATION Vital Sign Triage Latest Temp Oral Temp Temporal Temp Intravascular Temp Axillary Temp Rectal 02 Sat 98 % 99 % Respiratory Rate Peripheral Pulse Rate Apical Heart Rate Blood Pressure / 88 mmHg / 91 mmHg Comment: MEDICAL INFORMATION Allergy Info: No known allergies Prescriptions Given: metoprolol (metoprolol succinate 25 mg oral tablet, extended release) 1 tab(s) Oral every day. oxyCODONE (oxyCODONE 5 mg oral capsule) 1 cap(s) Oral Every 6 hours as needed for pain., RX given to per Dr Patiño on 11/03/2020 Medication List: Medications to Continue That Have Not Changed Other Medications metoprolol (metoprolol succinate 25 mg oral tablet, extended release) 1 tab(s) Oral every day. oxyCODONE (oxyCODONE 5 mg oral capsule) 1 cap(s) Oral Every 6 hours as needed for pain. Medications to Continue That Have Not Changed Other Medications metoprolol (metoprolol succinate 25 mg oral tablet, extended release) 1 tab(s) Oral every day. oxyCODONE (oxyCODONE 5 mg oral capsule) 1 cap(s) Oral Every 6 hours as needed for pain. Medications to Continue That Have Not Changed Other Medications metoprolol (metoprolol succinate 25 mg oral tablet, extended release) 1 tab(s) Oral every day. oxyCODONE (oxyCODONE 5 mg oral capsule) 1 cap(s) Oral Every 6 hours as needed for pain. Comment: Lab and Radiology Results Laboratory or Other Results This Visit (last charted value for your 11/15/2020 visit) Chemistry 11/15/2020 9:50 AM U Preg: Negative COVID-19 Testing 11/15/2020 9:51 AM COVID-19 PCR: Not Detected Employed in healthcare?: No Symptomatic as defined by CDC?: No Hospitalized due to COVID-19?: Unknown In ICU?: No Group care resident?: No status?: Not Diagnostic Radiology 11/15/2020 3:14 PM XR Ankle 2 Views Left: XR Ankle 2 Views Left XR Fluoroscopy Up to 1 Hour: XR Fluoroscopy Up to 1 Hour Radiology Report 11/15/2020 4:29 PM Radiology Report: Radiology Report DIET & ACTIVITY Patient Activity Level: Patient Diet: Patient Activity Restrictions: DISCHARGE INFORMATION Discharge Disposition: Discharge Location: DEPART REASON INCOMPLETE INFORMATION PATIENT EDUCATION INFORMATION Instructions: Ankle Fracture Follow up: With: Address: When: DANTE Napoles [facility], [address] [place] [address] Business (1) 11/20/2020 2:00 PM With: Address: When: DANTE Napoles [facility], [address] [place] [address] Business (1) In 5 days 11/20/2020 With: Address: When: FRANK LINARES [facility], [address] [place], [place] [address] [place], [place] [id number] Business (1) DIAGNOSIS Fracture dislocation of left ankle Comment: PHYS DOC NOTES [facility] Clinical Note 11-04-2020 Note Date & Type Note Facility 11-04-2020 Note [facility] SURGERY Clinical Discharge Summary PERSON INFORMATION Name LORI DECKER Age 29 Years 1990 Sex FEMALE Language Kazakh PCP FRANK LINARES Marital Status Single Med Service Ambulatory Surgery Acct# Arrival 11/04/2020 07:48:00 Visit Reason SURGERY - ORIF LEFT ANKLE Acuity LOS 003 16:45 Address: [address] [place] [id number] Comment: PROVIDER INFORMATION VITALS INFORMATION Vital Sign Triage Latest Temp Oral Temp Temporal Temp Intravascular Temp Axillary Temp Rectal 02 Sat 98 % 98 % Respiratory Rate Peripheral Pulse Rate Apical Heart Rate Blood Pressure / 98 mmHg / 98 mmHg Comment: MEDICAL INFORMATION Allergy Info: No known allergies Prescriptions Given: acetaminophen-oxycodone (acetaminophen-oxycodone 325 mg-5 mg oral tablet) 1 tab(s) Oral Every 4 hours as needed for pain. metoprolol (metoprolol succinate 25 mg oral tablet, extended release) 1 tab(s) Oral every day. Medication List: Medications to Continue That Have Not Changed Other Medications acetaminophen-oxycodone (acetaminophen-oxycodone 325 mg-5 mg oral tablet) 1 tab(s) Oral Every 4 hours as needed for pain. metoprolol (metoprolol succinate 25 mg oral tablet, extended release) 1 tab(s) Oral every day. Medications to Continue That Have Not Changed Other Medications acetaminophen-oxycodone (acetaminophen-oxycodone 325 mg-5 mg oral tablet) 1 tab(s) Oral Every 4 hours as needed for pain. metoprolol (metoprolol succinate 25 mg oral tablet, extended release) 1 tab(s) Oral every day. Medications to Continue That Have Not Changed Other Medications acetaminophen-oxycodone (acetaminophen-oxycodone 325 mg-5 mg oral tablet) 1 tab(s) Oral Every 4 hours as needed for pain. metoprolol (metoprolol succinate 25 mg oral tablet, extended release) 1 tab(s) Oral every day. Comment: Lab and Radiology Results Laboratory or Other Results This Visit (last charted value for your 11/04/2020 visit) COVID-19 Testing 11/01/2020 8:30 AM COVID-19 PCR: Not Detected Employed in healthcare?: No Symptomatic as defined by CDC?: No Hospitalized due to COVID-19?: No In ICU?: No Group care resident?: No status?: Not DIET & ACTIVITY Patient Activity Level: Patient Diet: Patient Activity Restrictions: DISCHARGE INFORMATION Discharge Disposition: Discharge Location: DEPART REASON INCOMPLETE INFORMATION PATIENT EDUCATION INFORMATION Instructions: Ankle Fracture Follow up: DIAGNOSIS Trimalleolar fracture of left ankle Comment: PHYS DOC NOTES [facility] Evaluation note Note Date & Type Note Facility Evaluation note Diagnosis Essential hypertension ([facility])- Primary Unspecified essential hypertension Menorrhagia with regular cycle Abnormal vaginal bleeding Other specified noninflammatory disorder of vagina Tinea pedis of both feet Onychomycosis of toenail Iron deficiency anemia due to chronic blood loss Iron deficiency anemia secondary to blood loss (chronic) Morbid obesity (CMS/HCC) Morbid obesity documented in this encounter [facility] Evaluation note Note Date & Type Note Facility Evaluation note Diagnosis Acute non-recurrent maxillary sinusitis- Primary documented in this encounter [facility] Summary Purpose Family History No Family History Records FoundNo Family History Records FoundNo Family History Records Found Advance Directives No Advanced Directives Records FoundNo Advanced Directives Records FoundNo Advanced Directives Records Found Additional Source Comments INFORMATION SOURCE (unrecogn ized section and content) DATE CREATED AUTHOR 12/01/2020 [facility] DATE CREATED AUTHOR AUTHOR'S ORGANIZ ATION 10/08/2022 [facility] DATE CREATED AUTHOR AUTHOR'S ORGANIZ ATION 08/12/2024 [facility] Care Teams (unrecognized sec tion and content) Orchestrator Relationship Specialty Start Date End Date Mick Patiño DO [address] [place] [address] PCP [facility] 10/24/22 Frank Linares MD [address] [place] [address] PCP - General Internal Medicine 12/01/22 Orchestrator Relationship Specialty Start Date End Date Mick Patiño DO [address] [place] [address] PCP [facility] 10/24/22 Frank Linares MD [address] [place] [address] PCP - General Internal Medicine 12/01/22 Orchestrator Relationship Specialty Start Date End Date Mick Patiño DO [address] [place] [address] PCP [facility] 10/24/22 Frank Linares MD [address] [place] [address] PCP - General Internal Medicine 12/01/22 Orchestrator Relationship Specialty Start Date End Date Mick Patiño DO [address] [place] [address] PCP [facility] 10/24/22 Frank Linares MD [address] [place] [address] PCP - General Internal Medicine 12/01/22 Orchestrator Relationship Specialty Start Date End Date Mick Patiño DO [address] [place] [address] PCP [facility] 10/24/22 Frank Linares MD [address] [place] [address] PCP - [facility] Internal Medicine 12/01/22 Orchestrator Relationship Specialty Start Date End Date Frank Linares MD [address] [place] [address] PCP - General Internal Medicine 12/01/22 Nolvia Ovalle PA [address] [place] [address] PCP - [facility] 07/26/24 Reason for Visit (unrecogniz ed section and content) Reason Comments athletes foot She has been dealing with athletes foot and toe fungus for about 2 years. Bilateral feet and on bilateral 5th toe she has fungus and fungus on left great toe. She has been using OTC athletes foot and not helping. Med Refill control pill, she does have an appt with [facility] but not until November 2024 so just needs refill until she can get into see him. FOR RECORDS PERTAINING TO PATIENTS WHO ARE OR HAVE BEEN ENROLLED IN A CHEMICAL DEPENDENCY/SUBSTANCEABUSE PROGRAM, SOME INFORMATION MAY BE OMITTED. This clinical summary was aggregated from multiple sources. Caution should be exercised in using it in the provision of clinical care. This summary normalizes information from multiple sources, and as a consequence, information in this document may materially change the coding, format and clinical context of patient data. In addition, data may be omitted in some cases. CLINICAL DECISIONS SHOULD BE BASED ON THE PRIMARY CLINICAL RECORDS. [employer] [facility]. provides no warranty or guarantee of the accuracy or completeness of information in this document.
[2024-12-15 13:10] LABS: Age Gdln ACOG Testing Note (.); HPV Aptima Negative (Negative); IGP, Aptima HPV, rfx 16/18,45 Note (.)
== END 2024-12-12 19:00 | disposition home or self-care (01) ==
LOC: LAB 18:59
PROVIDERS: PCP Internal Medicine; Visit Provider Obstetrics & Gynecology
DX: Z01.419 Encounter for gynecological examination (general) (routine) without abnormal findings (principal)
CPT/HCPCS: 87624; 88175